=== PATIENT | female | born 1960 | race Caucasian/White ===

== ENCOUNTER 2023-02-02 12:07 | Emergency (ER) | payer SELFPAY ==
[2023-02-02 12:08] VITALS: BP 114/79; PULSE 87; RESP 18; TEMP 36.7; O2SAT 91
--- NOTE | 2023-02-02 12:09 | XRR_ITS ---
PROCEDURE INFORMATION: Exam: XR Chest Exam date and time: 02/02/2023 12:15 PM Age: 62 years old Clinical indication: Other: AMS TECHNIQUE: Imaging protocol: Radiologic exam of the chest. Views: 1 view. COMPARISON: No relevant prior studies available. FINDINGS: Lungs: Mild interstitial prominence, nonspecific, possibly fibrosis. No large areas of dense lobar consolidation seen of the lungs. Pleural spaces: No large or obvious pneumothorax nor pleural effusion seen. Heart/Mediastinum: Heart size appears upper limits of normal. Vasculature: Atherosclerotic disease aorta. Bones/joints: Evidence of right rib fractures, probably subacute to chronic. Curvature, degenerative changes spine. Other findings: Patient appears rotated slightly to the left. XR/XR chest 1V portable [id number] IMPRESSION: Mild interstitial prominence, nonspecific, possibly fibrosis. No large areas of dense lobar consolidation seen of the lungs.
--- NOTE | 2023-02-02 12:09 | CT_ITS ---
WS: [id number] CT HEAD TECHNIQUE: Noncontrast CT of the head obtained from the skullbase to the vertex. CLINICAL INFORMATION: ams COMPARISON: None. DLP: 1083.[address] scans at [facility] use at least one of these dose optimization techniques: automated e xposure control; mA and/or kV adjustment per patient size (includes targeted exams where dose is matc hed to clinical indication); or iterative reconstruction. FINDINGS: No evidence intracranial hemorrhage. Focal low-attenuation change within the RIGHT temporo- occipital junction measuring 2.0 x 1.9 cm. Additional focus low-attenuation involving the RIGHT cereb ellum posteriorly measuring 1.2 x 1.1 cm. Additional tiny low-attenuation focus involving the RIGHT f rontal parietal junction. No significant mass effect or midline shift. Mild small vessel changes. No significant parenchymal volume loss. Paranasal sinuses and mastoid air cells are well aerated. IMPRESSION: 1. A few areas of low-attenuation described above the largest in the RIGHT temporal occipital juncti on measuring 2.0 x 1.9 cm. 2. Differential considerations include metastatic disease versus multiple foci of subacute ischemia . Recommend further evaluation with MRI without and with gadolinium. 3. No significant mass effect or midline shift. Notified Aquiles Gupta DO at 02/02/2023 1:05 PM.
--- NOTE | 2023-02-02 12:10 | ECG_ITS ---
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 Measurements Intervals [place] Rate: 79 P: 57 KS: 140 QRS: 80 QRSD: 83 T: 66 QT: 422 QTc: 486 Interpretive Statements SINUS RHYTHM No previous ECG available for comparison Electronically Signed On 02-02-2023 19:27:08 WATCH PARTS INSPECTOR by Lopez Hubbard M.D. [email or web address]
--- NOTE | 2023-02-02 12:11 | ED_ITS ---
HPI - Altered Mental Status 2 General: Chief Complaint: Fall Stated Complaint: ;fall Time Seen by Provider: 02/02/23 12:09 Source: patient and EMS Mode of arrival: EMS Limitations: altered mental status History of Present Illness: Much of the history is provided by EMS as well as the patient. EMS states that they were called to the scene by the . They arrived to find the patient on the floor but no one could give them a history of how she wound up on the floor. They stated there was no signs of trauma on arrival. They states that she was alert somewhat confused but generally cooperative. was not forthcoming with any additional history. They state that they saw bottles of consumed liquor in the house. They state that the house was normal temperature. There was no odors in the house, space heaters, etc. Patient states that she is unaware of how she went out and floor. She states she did not sleep well last night but cannot tell me why she did not sleep well. She states she does not have any pain other than some mild soreness in her upper back. She denies any recent illness cough fever chest pain shortness of breath dysuria recent travel etc. She states she smokes tobacco but does not consume alcohol very often and has not consumed alcohol recently. She states she has not had thoughts of harming herself and has not consumed any illicit substances. She states she has not eaten today. She takes no daily medications and has never had any surgeries. No family members present initially and EMS unsure if any will be forthcoming. MD complaint: confusion Severity: moderate Context: unknown Associated symptoms: Reports no associated symptoms; Deny depression, homicidal ideation or suicidal ideation Review of Systems 2 Const: Denies: fever(s) or chills Eyes: Denies: change in vision ENMT: Denies: throat pain or odynophagia Card: Denies: chest pain, palpitations, irregular heart rhythm, syncope or pre-syncope Resp: Denies: dyspnea, productive cough or non-productive cough GI: Denies: nausea, vomiting, diarrhea, hematochezia or melena : Denies: flank pain, difficulty voiding, dysuria or urinary frequency Musc: Denies: neck pain, extremity pain or extremity swelling Skin/Breast: Denies: rash, pruritus or erythema Neuro: Denies: headache(s), numbness in extremities, weakness in extremities or seizure-like activity Psych: Denies: depression, suicidal ideation or homicidal ideation Physical Exam 2 Narrative: The patient is alert. She does make eye contact and answers questions readily however she is not able to provide much in the way of a detailed answer. She is able to tell me her birthdate or address. Const: COMMON NORMALS: no acute distress, average body habitus and alert G ENERAL APPEARANCE: cooperative and anxious ORIENTATION/CONSCIOUSNESS: Yes awake, Yes oriented to person and Yes confused HENMT: COMMON NORMALS: normocephalic, atraumatic and Normal nasal mucous membranes and turbinates present; oral mucous membranes not moist HEAD & SCALP: normocephalic and atraumatic FACE & SINUS: normal facial exam and face symmetric NOSE: Normal nasal mucous membranes and turbinates present Eye: COMMON NORMALS: Equal, round and reactive pupils present, EOMs intact bilaterally, conjunctivae normal and no scleral icterus CONJUNCTIVA: Yes conjunctivae normal PUPIL: Yes Equal, round and reactive pupils present Neck/C-Spine: COMMON NORMALS: full ROM, no lymphadenopathy, supple, no meningeal signs, no JVD and Thyroid normal THYROID: Thyroid normal Chest: COMMONS NORMALS: normal inspection of the chest Cardio: COMMON NORMALS: no JVD, regular rate, regular rhythm, No murmurs present (Cardio) and Peripheral pulses 2+ throughout RATE: regular rate R HYTHM: regular rhythm PERIPHERAL PULSES: Peripheral pulses 2+ throughout GI: COMMON NORMALS: Normal to inspection, nondistended, normoactive bowel sounds present, Soft to palpation and non-tender PALPATION: Yes Soft to palpation : COMMON NORMALS: Yes no CVA tenderness BLADDER/KIDNEY EXAM: Yes no CVA tenderness Back/Pelvis: COMMON NORMALS: no CVA tenderness, thoracic and lumbar spine normal to inspection, no thoracic nor lumbar tenderness, thoraco-lumbar ROM normal and straight leg raise negative bilaterally Extremity: COMMON NORMALS: normal to inspection, full ROM, capillary refill normal, no calf tenderness and no pedal edema Neuro: COMMON NORMALS: moves all extremities, no focal motor deficits and no sensory deficits noted SENSORIUM/ORIENTATION: Yes alert and Yes oriented to person MENINGEAL SIGNS: Yes no meningeal signs CRANIAL NERVES: Yes CN normal except as noted Psych: COMMON NORMALS: mental status grossly normal, denies hallucinations, denies homicidal ideation and denies suicidal ideation THOUGHT PROCESS: d isorganized and confused Skin: COMMON NORMALS: no rashes or lesions noted, no wounds, turgor normal and no petechiae GENERAL SKIN EXAM: no rashes or lesions noted and turgor normal Course 2 ED course: The patient's called after her arrival but was very difficult to understand. He stated that she had had any seizure activity confirmed that she took no daily medications and also confirmed that she is not under the care of any physician at this time. Reevaluation(s): Reevaluation #1: Received a phone report from consulting radiologist on noncontrast CT which showed disparate lesions in her brain which it is unclear whether they represent a subacute infarct versus possible metastatic lesions with surrounding edema. MRI was recommended. Should be noted that other than confusion the patient has no focal neurologic findings. Her NIH is 0 at this time. Time: 12:59 Reevaluation #2: Patient was reexamined. Also received a phone call regarding radiographic report on MRI which does not show any acute findings regarding the lesion is and that they likely represent old small infarcts. They do note that there are some changes that may be suggestive of press syndrome. However the patient has no evidence of hypertension at this time. She was reinterviewed and reexamined. She seems to be a little bit more lucid than initial presentation states that she had a rough time last night and this has back pain. She is unaware of any injury. Her clinical examination reveals some tenderness in her thoracic spine to palpation. There is no step-off. She has no neurologic findings on repeat examination with regards of focal weakness, change in sensation etc. Will going proceed with imaging of her thoracic and lumbar spine with noncontrast CT. Time: 15:41 Reevaluation #3: Patient still remains some quite confused albeit some improved from initial presentation. She insist that she must go home and take care of her however she is clearly not at the point where she could not do so. She is not certain as to her telephone number or her address at this point in time. We will attempt to contact her family. She states she has a brother. I did speak with her earlier however he was very difficult to understand on the telephone. We have made multiple attempts to locate a address and phone number for her but are unable to get that accurate information. I do not have neurology support at this time and I feel it is her best interest to be transferred to a facility that has neurology another subspecialty support at this time. Time: 17:41 Consultations: Consultation #1: Discussed with admitting team at [facility] we reviewed all current findings and they agreed to take the patient in transfer. Time: 19:02 Vital Signs: Vital signs: Vital Signs Temperature 98.1 F 02/02/23 12:08 Pulse Rate 87 02/02/23 12:08 Respiratory Rate 18 02/02/23 12:08 Blood Pressure 114/79 02/02/23 12:08 Pulse Oximetry 98 02/02/23 18:11 Oxygen Delivery Me thod Room Air 02/02/23 18:11 MDM - Altered Mental Status Medical Decision Making This patient was transported to our emergency department from her home. History is limited to that which can be obtained from the EMS crew and the limited history obtained from the patient and her via telephone. EMS arrived on scene and found the patient in the floor. There was some question of whether she had fallen but it does not sound like she had been on the floor for very long according to what can be discerned historically. They found the patient to be confused and were limited in her history that they could obtained from her . There was no signs of trauma in the home no evidence of space eaters etc. The patient was transported in stable condition to the emergency department. Upon arrival she was evaluated. Was noted to be confused as to situation limited and insight. Her clinical examination was only notable for mid back tenderness in addition to her confusion. A broad differential was entertained which included a broad approach to her workup. Imaging was obtained which included a noncontrast CT scan which had findings there were nonspecific and further imaging was recommended by radiology. An MRI with contrast and without contrast was obtained which showed no evidence of acute changes other than there was some edema suggestive of possible press syndrome. Urine drug screen was positive for marijuana only. Other tox screens were unremarkable. VBG showed a normal pH and chemistries were only remarkable for borderline potassium of 3.1. Her initial troponin was nonconcerning and as well as initial EKG did not reveal any ischemic changes or arrhythmia. She had a leukocytosis but no clear or obvious source of infection. Chest x-ray was unremarkable a CT of her thoracic and lumbar spine revealed a nondisplaced stable T5 compression fracture. She remained normotensive and otherwise normal vital signs throughout her emergency department stay however she remained confused and exhibiting's signs of nonspecific delirium but possible press syndrome of other etiology other than hypertension. Because of the lack of neurology support at this facility it was felt that she would be better served by a tertiary care facility that had more supportive services. Mandi Manznaares was consulted and agreed to accept the patient in transfer. She remained clinically stable for such transfer Differential Diagnosis Likely delirium Lab Data I reviewed the patient's lab results. 02/02/23 12:40 02/02/23 12:40 Radiology Impressions Chest X-Ray 02/02/23 12:09 IMPRESSION: Mild interstitial prominence, nonspecific, possibly fibrosis. No large areas of dense lobar consolidation seen of the lungs. KUB X-Ray 02/02/23 13:28 IMPRESSION: No acute pathology. No foreign body. Lumbar Spine CT 02/02/23 15:41 IMPRESSION: Superior endplate compression deformity of L5, age indeterminate. No retropulsed fragment. Osteopenia and degenerative change. Thoracic Spine CT 02/02/23 15:41 IMPRESSION: Recent marked T5 compression fracture. No retropulsed fragment. Laboratory Results WBC 20.62 10^3/uL (3.29-11.43) H 02/02/23 12:40 RBC 5.79 10^6/uL (3.85-5.65) H 02/02/23 12:40 Hgb 16.50 g/dL (11.27-16.99) 02/02/23 12:40 Hct 48.2 % (36-47) H 02/02/23 12:40 MCV 83.2 fl (85-98) L 02/02/23 12:40 MCH 28.5 pg (27-33) 02/02/23 12:40 MCHC 34.2 g/dL (30-55) 02/02/23 12:40 RDW 14.0 % (12.1-15.1) 02/02/23 12:40 Plt Count 294 10^3/cmm (157-399) 02/02/23 12:40 MPV 10.8 fL (7.4-10.4) H 02/02/23 12:40 Neut % (Auto) 92.3 % 02/02/23 12:40 Lymph % (Auto) 3.8 % 02/02/23 12:40 [place] % (Auto) 2.8 % 02/02/23 12:40 Eos % (Auto) 0.1 % 02/02/23 12:40 Baso % (Auto) 0.1 % 02/02/23 12:40 Neut # (Auto) 19.04 10^3/uL (1.8-7.7) H 02/02/23 12:40 Lymph # (Auto) 0.8 10^3/uL (0.8-4.8) 02/02/23 12:40 [place] # (Auto) 0.6 10^3/uL (0.2-0.9) 02/02/23 12:40 Eos # (Auto) 0.0 10^3/uL (0.0-0.8) 02/02/23 12:40 Baso # (Auto) 0.0 10^3/uL (0.0-0.1) 02/02/23 12:40 Nucleated RBC % (auto) 0 % 02/02/23 12:40 Nucleated RBCs # 0.0 /100WBC 02/02/23 12:40 Specimen Type Venous 02/02/23 12:40 Sample Site Not specified 02/02/23 12:40 [place]aughn Test N/a 02/02/23 12:40 VBG pH 7.44 (7.32-7.42) H 02/02/23 12:40 VBG pCO2 34.2 mmHg (41-51) L 02/02/23 12:40 VBG pO2 28.8 mmHg (25-40) 02/02/23 12:40 VBG HCO3 23.3 mmol/L (24-28) L 02/02/23 12:40 VBG Base Excess -0.1 mmol/L (-3.0-3.0) 02/02/23 12:40 VBG Hematocrit 53.4 % (37-47) H 02/02/23 12:40 O2 Delivery Device None 02/02/23 12:40 Mixing And Molding Machine Operator ID glc 02/02/23 12:40 Sodium 134 mmol/L (136-145) L 02/02/23 12:40 Potassium 3.1 mmol/L (3.5-5.1) L 02/02/23 12:40 Chloride 93 mmol/L (98-107) L 02/02/23 12:40 Carbon Dioxide 20 mmol/L (22-29) L 02/02/23 12:40 Anion Gap 24.1 (5-19) H 02/02/23 12:40 BUN 30 mg/dL (8-23) H 02/02/23 12:40 Creatinine 0.8 mg/dL (0.5-0.9) 02/02/23 12:40 GFR Calculation 72.2 mL/min (90-130) L 02/02/23 12:40 Glucose 172 mg/dL (65-115) H 02/02/23 12:40 Calculated Osmolality 288 mOsm/kg (285-295) 02/02/23 12:40 Calcium 10.2 mg/dL (8.5-10.5) 02/02/23 12:40 Total Bilirubin 0.9 mg/dL (0.15-1.2) 02/02/23 12:40 AST 32 U/L (0-32) 02/02/23 12:40 ALT 17 U/L (0-33) 02/02/23 12:40 Alkaline Phosphatase 166 U/L (35-105) H 02/02/23 12:40 Troponin T Baseline 9 ng/L (0-10) 02/02/23 12:40 Troponin T 120 Minute 10.54 ng/L (0-10) H 02/02/23 15:44 Delta Troponin T 1.54 ABS# (0-10) 02/02/23 15:44 Total Protein 7.9 g/dL (6.6-8.7) 02/02/23 12:40 Albumin 4.7 g/dL (3.5-5.2) 02/02/23 12:40 Globulin 3.2 g/dL (1.3-4.6) 02/02/23 12:40 Urine Color Yellow (Yellow) 02/02/23 14:00 Urine Appearance Sl hazy (CLEAR) A 02/02/23 14:00 Urine pH 5 (5-7) 02/02/23 14:00 Ur Specific [place] 1.020 (1.005-1.030) 02/02/23 14:00 Urine Protein 3+ (Negative) H 02/02/23 14:00 Urine Glucose (UA) Norm (Normal) 02/02/23 14:00 Urine Ketones 2+ (Negative) H 02/02/23 14:00 Urine Blood 3+ (Negative) H 02/02/23 14:00 Urine Nitrate Negative (Negative) 02/02/23 14:00 Urine Bilirubin Neg (Negative) 02/02/23 14:00 Urine Urobilinogen Norm mg/dL (Negative) 02/02/23 14:00 Ur Leukocyte Esterase Negative (Negative) 02/02/23 14:00 Urine RBC 5-10 /hpf (0-2) H 02/02/23 14:00 Urine WBC 0-4 /hpf (0-5) H 02/02/23 14:00 Ur Squamous Epith Cells 15-25 /hpf (0-5) H 02/02/23 14:00 Amorphous Sediment Not Reportable 02/02/23 14:00 Urine Bacteria 1+ /hpf (NONE) H 02/02/23 14:00 Salicylates 0.4 mg/dL (3-10) L 02/02/23 12:40 Urine Opiates Screen Negative ng/mL (Negative) 02/02/23 14:00 Acetaminophen < 5.0 ug/mL (10-30) L 02/02/23 12:40 Ur Barbiturates Screen Negative ng/mL (Negative) 02/02/23 14:00 Ur Phencyclidine Scrn Negative ng/mL (Negative) 02/02/23 14:00 Ur Amphetamines Screen Negative ng/mL (Negative) 02/02/23 14:00 U Benzodiazepines Scrn Negative ng/mL (Negative) 02/02/23 14:00 Urine Cocaine Screen Negative ng/mL (Negative) 02/02/23 14:00 U Marijuana (THC) Screen Positive ng/mL (Negative) H 02/02/23 14:00 Ethyl Alcohol < 10 mg/dL (0-10) 02/02/23 12:40 All radiology interpretation(s) finalized by discharge EKG Data EKG 1: I personally reviewed and interpreted this EKG as follows: Interpretation: Contemporaneous review of resting EKG reveals a ventricular rate of 79 bpm. Normal OK interval, QRS duration. Normal corrected QT interval. Normal axis. No acute ST-T wave changes noted. No prior tracing available for comparison. No acute changes at this time. Discharge Plan Discharge Patient Disposition: Xfer Short-Term Hosp Clinical Impression: Delirium, Compression fracture of T5 vertebra Condition: Stable Prescriptions: No Action No Known Home Medications Coding Level of Care Code ED Bottom Scrubber for Chg Fwd
[2023-02-02 12:45] LABS: Base Excess VBG -0.1 mmol/L (-3.0-3.0); Blood Gas Operator Identificat glc; Blood Gas Sample Site Not specified; Blood Gas Sample Type Venous; HCO3 VBG 23.3 mmol/L (24-28); PCO2 VBG 34.2 mmHg (41-51); PO2 VBG 28.8 mmHg (25-40); Venous Blood Gas Hematocrit 53.4 % (37-47); pH VBG 7.44 (7.32-7.42)
[2023-02-02 12:47] LABS: Basophils % 0.1 %; Eosinophils % 0.1 %; Hematocrit 48.2 % (36-47); Lymphocytes # 0.8 10^3/uL (0.8-4.8); Lymphocytes % 3.8 %; Mean Corpuscular HGB Conc 34.2 g/dL (30-55); Mean Corpuscular Hemoglobin 28.5 pg (27-33); Mean Corpuscular Volume 83.2 fl (85-98); Mean Platelet Volume 10.8 fL (7.4-10.4); Monocytes # 0.6 10^3/uL (0.2-0.9); Monocytes % 2.8 %; Neutrophils # 19.04 10^3/uL (1.8-7.7); Neutrophils % 92.3 %; Nucleated Red Blood Cells % 0 %; Platelet Count 294 10^3/cmm (157-399); Red Blood Count 5.79 10^6/uL (3.85-5.65); White Blood Count 20.62 10^3/uL (3.29-11.43)
--- NOTE | 2023-02-02 12:55 | MR_ITS ---
WS: [id number] MRI BRAIN WITH AND WITHOUT CONTRAST HISTORY: Abnormal lesions on CT. COMPARISON: CT head 02/02/2023 TECHNIQUE: Multiplanar imaging performed through the brain with MultiHance 10 ml's IV. Diffusion imaging is normal. 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 Patchy bilateral posterior parieto-occipital cortical and subcortical areas of edema are symmetric. T his is most typical for acute hypertensive encephalopathy. There is an additional small remote infarc t in the posterior RIGHT parietal lobe that was described by CT. There are no areas of abnormal enhan cement. Additional mild small vessel ischemic disease throughout the white matter. Clivus and pituitary gland are normal. Postcontrast images are negative for masses or vascular malformations. Dural venous sinuses are normal. Paranasal sinuses: Well aerated with no significant disease. Mastoid air cells: Normal. Calvarium and scalp: Normal. IMPRESSION: 1. No acute diffusion abnormality or enhancing mass. 2. Cortical and subcortical edema in the posterior parieto-occipital lobes as described above. This is most consistent with acute hypertensive encephalopathy (PRES). Notified Aquiles Gupta DO at 02/02/2023 3:30 PM.
[2023-02-02 13:18] LABS: Alanine Aminotransferase 17 U/L (0-33); Albumin Level 4.7 g/dL (3.5-5.2); Alkaline Phosphatase 166 U/L (35-105); Anion Gap 24.1 (5-19); Aspartate Amino Transferase 32 U/L (0-32); Blood Urea Nitrogen 30 mg/dL (8-23); Calcium 10.2 mg/dL (8.5-10.5); Carbon Dioxide 20 mmol/L (22-29); Chloride 93 mmol/L (98-107); Globulin 3.2 g/dL (1.3-4.6); Glomerular Filtration Rate 72.2 mL/min (90-130); Glucose 172 mg/dL (65-115); Osmolality Calculated 288 mOsm/kg (285-295); Potassium 3.1 mmol/L (3.5-5.1); Salicylate 0.4 mg/dL (3-10); Sodium 134 mmol/L (136-145); Total Bilirubin 0.9 mg/dL (0.15-1.2); Total Protein 7.9 g/dL (6.6-8.7)
[2023-02-02 13:22] LABS: Troponin(5th) Baseline 9 ng/L (0-10)
[2023-02-02 13:27] LABS: Acetaminophen < 5.0 ug/mL (10-30); Alcohol Level < 10 mg/dL (0-10)
--- NOTE | 2023-02-02 13:28 | XRR_ITS ---
PROCEDURE INFORMATION: Exam: XR Abdomen, MR Screening Exam date and time: 02/02/2023 1:50 PM Age: 62 years old Clinical indication: Screening exam; Other: Pre mri; Additional info: Evaluate for stimulator, etc pre mri TECHNIQUE: Imaging protocol: abdomen and pelvis. Exam was performed for MR screening. Views: 1 view. COMPARISON: CR XR chest 1V portable [id number] 02/02/2023 12:15 PM FINDINGS: Gastrointestinal tract: Generalized paucity of bowel gas. Pelvic calcifications are nonspecific but may be related to vascular etiology and/or fibroid. No foreign body. Bones/joints: Mild degenerative change of the spine. Radiopaque device or foreign body: None. No evidence of device or foreign body. No visible contraindication to MRI on this exam. XR/XR KUB portable [id number] IMPRESSION: No acute pathology. No foreign body.
[2023-02-02] MEDS: acetaminophen 325 mg Tablet 650 MG PO (13:53)
[2023-02-02] MEDS: sodium chloride 0.9% 1,000 ML 999 ML IV (13:57)
[2023-02-02 15:01] LABS: Amphetamines Screen Urine Negative (Negative); Barbiturates Screen Urine Negative (Negative); Benzodiazepines Screen Urine Negative (Negative); Cocaine Screen Urine Negative (Negative); Opiate Screen Urine Negative (Negative); PCP Screen Urine Negative (Negative); THC Screen Urine Positive (Negative)
[2023-02-02] MEDS: gadobenate dimeglumine 20 mL vial IV (15:06)
[2023-02-02 15:08] LABS: Add Urine Culture? No; Add Urine Microscopic? YES; Bacteria Urine 1+ /hpf; Bilirubin Urine Neg (Negative); Blood Urine 3+ (Negative); Glucose Urine UA Norm (Normal); Ketones Urine 2+ (Negative); Leukocyte Esterase Urine Negative (Negative); Nitrate Urine Negative (Negative); Protein Urine 3+ (Negative); Squamous Epithelial Cell Urine 15-25 /hpf (0-5); Urine Appearance SL Hazy (CLEAR); Urine Color Yellow (Yellow); Urobilinogen Urine Norm (Negative); WBC Urine 0-4 /hpf (0-5); pH Urine 5 (5-7)
--- NOTE | 2023-02-02 15:41 | CTR_ITS ---
PROCEDURE INFORMATION: Exam: CT Lumbar Spine Without Contrast Exam date and time: 02/02/2023 4:39 PM Age: 62 years old Clinical indication: Low back pain; Additional info: Spine pain TECHNIQUE: Imaging protocol: Computed tomography of the lumbar spine without contrast. Radiation optimization: All CT scans at this facility use at least one of these dose optimization techniques: automated exposure control; mA and/or kV adjustment per patient size (includes targeted exams where dose is matched to clinical indication); or iterative reconstruction. REPORTING DATA: Count of CT and Cardiac NM exams in prior 12 months: This patient has received 0 known CTs and 0 known cardiac nuclear medicine studies in the 12 months prior to the current study. COMPARISON: CT thoracic spin wo con* [id number] 02/02/2023 4:39 PM RADIATION DOSE METRICS: Total DLP (mGy-cm): 459.8 FINDINGS: Bones/joints: Mild levocurvature. Superior endplate compression deformity of L5 without generalized loss of height of the vertebral body. No retropulsed fragment. No discrete fracture line visualized. Osteopenia. Mild degenerative disc disease greatest at the L2-3 level. Degenerative changes noted at the facet joints, greatest in the lower lumbar spine. Kidneys and ureters: Residual contrast material the renal collecting systems from prior MRI contrast injection. Mild degenerative change of sacroiliac joints. Soft tissues: Unremarkable. CT/CT lumbar spine wo con* [id number] IMPRESSION: Superior endplate compression deformity of L5, age indeterminate. No retropulsed fragment. Osteopenia and degenerative change.
--- NOTE | 2023-02-02 15:41 | CTR_ITS ---
PROCEDURE INFORMATION: Exam: CT Thoracic Spine Without Contrast Exam date and time: 02/02/2023 4:39 PM Age: 62 years old Clinical indication: Pain in thoracic spine; Additional info: Midline pain TECHNIQUE: Imaging protocol: Computed tomography of the thoracic spine without contrast. Radiation optimization: All CT scans at this facility use at least one of these dose optimization techniques: automated exposure control; mA and/or kV adjustment per patient size (includes targeted exams where dose is matched to clinical indication); or iterative reconstruction. REPORTING DATA: Count of CT and Cardiac NM exams in prior 12 months: This patient has received 0 known CTs and 0 known cardiac nuclear medicine studies in the 12 months prior to the current study. COMPARISON: CT lumbar spine wo con* [id number] 02/02/2023 4:39 PM RADIATION DOSE METRICS: Total DLP (mGy-cm): 475.2 FINDINGS: Bones/joints: Osteopenia. Minimal dextrocurvature. Marked T5 compression fracture without retropulsed fragment. No underlying pathologic lesion visualized. Discrete fracture line noted with mild adjacent soft tissue swelling consistent with recent fracture. Mild kyphotic angulation at the fracture site. Mild degenerative disc disease throughout the thoracic spine. Marked degenerative disease of visualized lower cervical spine. Fatty change of the liver. Adenomatous change of the left adrenal gland. Severe pulmonary emphysema. Bronchial wall thickening. Pleural thickening.Coronary artery calcifications. Soft tissues: See Bones/joints finding. CT/CT thoracic spin wo con* [id number] IMPRESSION: Recent marked T5 compression fracture. No retropulsed fragment.
[2023-02-02 16:08] LABS: Troponin 5 2HR 10.54 ng/L (0-10); Troponin 5 2HR Delta 1.54 ABS# (0-10)
[2023-02-02 18:11] VITALS: O2SAT 98
[2023-02-02 18:43] LABS: Troponin 5 6HR 11.08 ng/L (0-10); Troponin 5 6HR Delta 2.08 ng/L (0-12)
[2023-02-02] MEDS: lactated ringers 1,000 ML 100 ML IV (19:13)
[2023-02-02 23:19] VITALS: PULSE 66; O2SAT 96
== END 2023-02-02 23:24 | disposition short-term general hospital (02) ==
PROVIDERS: Emergency Provider Emergency Medicine
DX: R41.0 Disorientation, unspecified (principal); S22.050A Wedge compression fracture of T5-T6 vertebra, initial encounter for closed fracture; X58.XXXA Exposure to other specified factors, initial encounter
CPT/HCPCS: 36415; 70450; 70553; 71045; 72128; 72131; 74018; 80053; 80306; 80307; 81001; 82803; 84484; 85025; 93005; 96360; 96361; 99285; A9577; J7030; J7120

== ENCOUNTER → 2023-02-27 14:15 | Outpatient (BNVA) | payer BC, SELFPAY | PROVIDERS: PCP Nurse Practitioner Family; Visit Provider Nurse Practitioner Family | DX: R53.83 Other fatigue (principal); I10 Essential (primary) hypertension | CPT/HCPCS: 80053; 85025 ==

== ENCOUNTER → 2023-03-07 11:56 | Outpatient (BNVA) | payer BC, SELFPAY | PROVIDERS: PCP Nurse Practitioner Family; Visit Provider Nurse Practitioner Family | DX: N39.0 Urinary tract infection, site not specified (principal) | CPT/HCPCS: 87086 ==

== ENCOUNTER 2023-05-24 10:02 | Outpatient (CLI) | payer BC, SELFPAY ==
--- NOTE | 2023-05-24 10:15 | MR_ITS ---
WS: [id number] MRI THORACIC SPINE WITHOUT CONTRAST TECHNIQUE: Sagittal T1, T2 and STIR imaging. Axial T2 imaging. Noncontrast imaging obtained. CLINICAL INFORMATION: S22.050A - Wedge compression fracture of T5-T6 vertebra, ... COMPARISON: None. FINDINGS: Moderate thoracic kyphosis. Anterior wedging with compression fracture at the T5 level with focal kyp hosis at this level. Compression has progressed slightly compared to the prior CT 02/02/2023 with los s of approximately 75% vertebral body height anteriorly. Mild retropulsion with slight contact of the thoracic cord but no significant central canal stenosis. Cord signal remains normal. Diffuse scleros is involving T5 vertebral body with replacement of the normal bone marrow signal. Pathologic compress ion not excluded. This can be further evaluated with gadolinium and/or bone scan. Mild compression of the superior endplates at T4 is new from previous with minimal loss of endplate h eight. Mild anterior wedging at this level. Associated edema in the superior endplate consistent with recent compression. Edema in the posterior elements at the RIGHT C4-T6 levels and LEFT T5 and T6. Ed todd could be inflammatory or due to instability. Cord signal is normal. Shallow disc protrusions in the mid and lower thoracic spine without significa nt central canal stenosis. Moderate facet arthropathy. Central disc protrusion at T2-3 with slight co ntact of the thoracic cord. No significant central canal stenosis. Trace edema in the superior endplate at T6 and inferior endplate at T3 may be degenerative but nonspe cific. Normal caliber thoracic aorta. IMPRESSION: 1. Anterior wedging with compression of the T5 level with diffuse replacement the normal bone marrow signal. Progression is progressed slightly compared to 02/02/2023. Consider pathologic compression. Recommend correlation with clinical history. Recommend further evaluation with MRI thoracic spine preet olinium and bone scan to assess for additional lesions 2. New mild compression involving the superior endplate at T4 with minimal loss of vertebral body he ight and edema compatible with a recent compression. 3. Diffuse edema in the lamina and pedicles at RIGHT T4-T6 and LEFT T5 and T6. This may be inflammat ory or due to instability. 4. Central disc protrusion at T2-3 with slight contact of the thoracic cord. 5. Mild central canal stenosis in the cervical spine with disc osteophyte protrusions on the ice cream vendor i maging at C5-C6 and C6-C7.
== END 2023-05-24 10:03 | disposition home or self-care (01) ==
LOC: RAD 10:02
PROVIDERS: PCP Nurse Practitioner Family; Visit Provider Nurse Practitioner Family
DX: S22.050A Wedge compression fracture of T5-T6 vertebra, initial encounter for closed fracture (principal); M48.02 Spinal stenosis, cervical region; X58.XXXA Exposure to other specified factors, initial encounter
CPT/HCPCS: 72146

== ENCOUNTER → 2023-06-01 10:06 | Outpatient (BNVA) | payer BC, SELFPAY | PROVIDERS: PCP Nurse Practitioner Family; Visit Provider Nurse Practitioner Family | DX: N30.00 Acute cystitis without hematuria (principal) | CPT/HCPCS: 81000 ==

== ENCOUNTER 2023-06-08 07:41 | Outpatient (CLI) | payer MEDICARE, SELFPAY ==
--- NOTE | 2023-06-08 08:15 | US_ITS ---
WS: [email or web address] RIGHT UPPER QUADRANT ULTRASOUND HISTORY: R10.811 - Right upper quadrant abdominal tenderness COMPARISON: None available. Liver: 13.0 cm in length. Normal size liver. Surface of the liver is very slightly undulating. Correl ate for early changes of cirrhosis. No mass or bile duct dilatation. Portal Vein: Normal hepatopetal flow with monophasic waveform. Gallbladder: Normally distended gallbladder with no stones or wall thickening. CBD: 0.5 cm Pancreas: Not visualized. Right kidney: 10.2 cm in length. Normal size and echogenicity. No hydronephrosis or mass. Aorta and IVC: Unremarkable abdominal aorta and IVC. No ascites. IMPRESSION: 1. Normal gallbladder. 2. Very mild irregularity of the liver surface. This can be seen with early changes of cirrhosis. No hepatic mass. 3. No bile duct dilatation.
== END 2023-06-08 07:42 | disposition home or self-care (01) ==
LOC: RAD 07:43
PROVIDERS: PCP Nurse Practitioner Family; Visit Provider Nurse Practitioner Family
DX: R10.811 Right upper quadrant abdominal tenderness (principal)
CPT/HCPCS: 76705

== ENCOUNTER 2023-06-12 08:37 | Outpatient (CLI) | payer BC, SELFPAY ==
--- NOTE | 2023-06-12 08:45 | NM_ITS ---
WS: [id number] NUCLEAR MEDICINE WHOLE BODY BONE SCAN HISTORY: M89.9 - Disorder of bone, unspecified COMPARISON: MRI thoracic spine 05/24/2023 TECHNIQUE: The patient was injected with 24.3 mCi of Technetium 99m HDP and serial whole-body scintig apoorva have been performed with anterior and posterior images. Markedly increased activity noted in the T5 vertebral body. Concave fracture was noted on recent MRI and CT. Lesser amount of activity noted within the RIGHT T4 and T3 vertebral bodies. There is an add itional focal area of increased intense uptake in the LEFT lower cervical spine, probably C7. Focal activity noted in the LEFT L5 pedicle. The long bones are negative. No sacral abnormality. No r ib abnormality. Additional focal increased uptake in the RIGHT humeral head. Normal soft tissue uptake. Kidneys are both identified. NM/NM bone scan whole body* [id number] IMPRESSION: 1. Multifocal areas of abnormal uptake within the spine. Due to the intense up take and fractures most specifically at T4 and T5 consideration for neoplastic process should be given. Differential includes metastatic bone disease and oste openia with pathological fractures and facet arthritis. 2. Additional increased uptake in the RIGHT humeral head. Metastatic site is n ot excluded. Recommend additional evaluation. Evaluation for an occult neoplasm should be performed. With history of smoking suggest additional imaging of the chest, abdomen and pelvis with IV and oral contrast. PET/CT may be of benefit also.
== END 2023-06-12 08:38 | disposition home or self-care (01) ==
LOC: RAD 08:37
PROVIDERS: PCP Nurse Practitioner Family; Visit Provider Nurse Practitioner Family
DX: M89.9 Disorder of bone, unspecified (principal)
CPT/HCPCS: 78306; A9561

== ENCOUNTER 2023-07-03 11:03 | Outpatient (CLI) | payer BC, SELFPAY ==
--- NOTE | 2023-07-03 12:00 | PETR_ITS ---
PROCEDURE INFORMATION: Exam: PET/CT Skull Base to Mid-thigh Exam date and time: 07/03/2023 12:07 PM Age: 63 years old Clinical indication: Abnormal findings; Anterior wedging with compression of the t5 level with diffuse replacement the normal bone marrow signal. Progression is progressed slightly compared to 02/02/2023. Consider pathologic compression. Recommend correlation with clinical history. Recommend further evaluation with mri thoracic spine gadolinium and bone scan to assess for additional lesions 2. New mild compression involving the superior endplate at t4 with minimal loss of vertebral body height and edema compatible with a recent compression. 3. Diffuse edema in the lamina and pedicles at right t4-t6 and left t5 and t6. This May be inflammatory or due to instability. 4. Central disc protrusion at t2-3 with slight contact of the thoracic cord. 5. Mild central canal stenosis in the cervical spine with disc osteophyte protrusions on the chemist organic imaging at c5-c6 and c6-c7; Additional info: R93.7 - abnormal findings on diagnostic imaging of other . . . LABS AND CLINICAL REPORTS: Glucose: 77 mg/dl Treatment strategy for malignancy (PET staging): Initial Staging (PI) TECHNIQUE: Imaging protocol: Following at least four-hour fasting and following the injection of radiopharmaceutical, low dose CT images were obtained. Then, PET images were obtained. Attenuation corrected images were constructed using the CT scan. Fused images of PET and CT were reviewed. The standardized uptake values (SUV) reported below are maximum values within a region of interest, expressed in gm/ml. Exam includes orbital meatal line to mid-thigh. Radiopharmaceutical: 13.2 mCi F-18 FDG (Fluorodeoxyglucose), IV. Time of imaging post radiopharmaceutical administration: 1 hour Injection site: Left antecubital COMPARISON: NM bone scan whole body* [id number] 06/12/2023 8:45 AM, MRI thoracic spine 05/24/2023, CT lumbar spine and CT thoracic spine 02/02/2023 FINDINGS: Brain: No abnormal uptake. Pharynx: No abnormal uptake. Larynx: There is physiologic appearing uptake within the larynx in the region of the vocal cords. Lungs, pleura and trachea: No abnormal uptake. Mild centrilobular emphysematous changes are present mild peripheral bullous versus paraseptal emphysematous changes are also noted bilaterally.Mild dependent streaky density in the lungs is consistent with atelectasis. Heart: Normal physiologic uptake. Mediastinal space: No abnormal uptake. Liver: No abnormal uptake. Gallbladder and bile ducts: No abnormal uptake. Pancreas: No abnormal uptake. Spleen: No abnormal uptake. Adrenal glands: No abnormal uptake. Kidneys and ureters: Normal physiologic uptake. Stomach and bowel: Uptake in the region of the rectum is noted, SUV max 6.5 on series 12, image 206. Assessment of the rectal wall is limited by incomplete distension on the CT images. There is physiologic appearing uptake in the region of the ileocecal valve. There are scattered colonic diverticula. Reproductive: Non radiotracer avid coarse calcifications likely within leiomyomas are noted within the uterus. Vasculature: No abnormal uptake. Diffuse atherosclerotic changes are noted. Lymph nodes: No abnormal uptake. No lymphadenopathy in the head, neck, chest, abdomen, pelvis, and extremities. Small benign-appearing calcified mediastinal and right hilar lymph nodes are present. Skeleton: Degenerative changes in the spine are present. A fracture of the T5 vertebral body appears similar and severe with mild uptake within a small portion of the fracture site posteriorly on the left, SUV max 2.9. Similar mild kyphosis centered at this level. Similar [id number] compression deformity of the superior endplate of T4 without elevated uptake. Mild uptake in the anterior superior endplate of the adjacent T6 vertebral body is noted without evidence of a fracture in this region, SUV max 2.6. An old appearing mild compression fracture or Schmorl's node of the superior endplate of L5 is noted. Mild degenerative appearing subcortical cystic changes are noted in the right humeral greater tuberosity which appear degenerative, without elevated uptake. Soft tissues: No abnormal uptake in the visualized head, neck, chest, abdomen, pelvis, and extremities. METRICS: Mediastinal blood pool: SUV max 1.9 PET/[facility] INITIAL [id number] IMPRESSION: 1. Elevated uptake within a small portion of a known severe compression fracture of the T5 vertebral body is noted, which in conjunction with prior imaging features favors a benign posttraumatic insufficiency fracture. A malignant pathologic fracture is less likely. 2. Old appearing mild compression fracture of the T4 vertebral body. 3. Mild uptake in the anterior superior endplate of T6 without a corresponding lesion on the CT images, possibly degenerative or related to contusion. 4. Focal uptake in the region of the rectum is noted. While this may be physiologic or inflammatory in nature, malignant etiology cannot be entirely excluded from this examination. 5. Colonic diverticulosis. 6. Pulmonary emphysematous changes. 7. Additional nonurgent findings as detailed above.
== END 2023-07-03 11:04 | disposition home or self-care (01) ==
PROVIDERS: PCP Nurse Practitioner Family; Visit Provider Nurse Practitioner Family
DX: R93.7 Abnormal findings on diagnostic imaging of other parts of musculoskeletal system (principal); S22.050D Wedge compression fracture of T5-T6 vertebra, subsequent encounter for fracture with routine healing; S22.049D Unspecified fracture of fourth thoracic vertebra, subsequent encounter for fracture with routine healing; K57.90 Diverticulosis of intestine, part unspecified, without perforation or abscess without bleeding; J43.8 Other emphysema; R93.3 Abnormal findings on diagnostic imaging of other parts of digestive tract
CPT/HCPCS: 78815; A9552

== ENCOUNTER → 2023-07-12 10:14 | Outpatient (BNVA) | payer BC, SELFPAY | PROVIDERS: PCP Nurse Practitioner Family; Referring Provider Nurse Practitioner Family; Visit Provider Orthopaedic Surgery | DX: Z01.812 Encounter for preprocedural laboratory examination (principal); S22.050A Wedge compression fracture of T5-T6 vertebra, initial encounter for closed fracture; W07.XXXA Fall from chair, initial encounter | CPT/HCPCS: 36415; 72072; 80053; 81001; 85025 ==

== ENCOUNTER 2023-07-24 12:51 | Oncology outpatient (recurring) (ONCR) | payer BC, SELFPAY ==
[2023-07-24 14:26] LABS: Basophils % 0.4 %; Eosinophils # 0.2 10^3/uL (0.0-0.8); Eosinophils % 1.9 %; Hematocrit 36.2 % (36-47); Lymphocytes # 2.8 10^3/uL (0.8-4.8); Lymphocytes % 27.6 %; Mean Corpuscular HGB Conc 34.3 g/dL (30-55); Mean Corpuscular Hemoglobin 29.3 pg (27-33); Mean Corpuscular Volume 85.6 fl (85-98); Mean Platelet Volume 10.5 fL (7.4-10.4); Monocytes # 0.5 10^3/uL (0.2-0.9); Monocytes % 5.3 %; Neutrophils # 6.63 10^3/uL (1.8-7.7); Neutrophils % 64.6 %; Nucleated Red Blood Cells % 0 %; Platelet Count 298 10^3/cmm (157-399); Red Blood Count 4.23 10^6/uL (3.85-5.65); Red Cell Distribution Width 14.1 % (12.1-15.1); White Blood Count 10.26 10^3/uL (3.29-11.43)
[2023-07-24 14:35] LABS: Erythrocyte Sedimentation Rate 48 mm/hr (0-15); LAB Peripheral Smear Sent for Review
[2023-07-24 14:41] LABS: Alanine Aminotransferase 10 U/L (0-33); Albumin Level 3.4 g/dL (3.5-5.2); Alkaline Phosphatase 122 U/L (35-105); Anion Gap 13.2 (5-19); Aspartate Amino Transferase 10 U/L (0-32); Blood Urea Nitrogen 8 mg/dL (8-23); C Reactive Protein 40.7 mg/L (0.0-4.9); Calcium 9.2 mg/dL (8.5-10.5); Carbon Dioxide 28 mmol/L (22-29); Chloride 101 mmol/L (98-107); Creatinine Clr Calc Pharmacy 58.8727; Globulin 3.2 g/dL (1.3-4.6); Glucose 99 mg/dL (65-115); Lactate Dehydrogenase 189 U/L (135-214); Osmolality Calculated 286 mOsm/kg (285-295); Potassium 3.2 mmol/L (3.5-5.1); Sodium 139 mmol/L (136-145); Total Bilirubin 0.2 mg/dL (0.15-1.2); Total Protein 6.6 g/dL (6.6-8.7)
== END 2023-08-12 23:59 | disposition home or self-care (01) ==
PROVIDERS: PCP Nurse Practitioner Family; Visit Provider Internal Medicine Medical Oncology
DX: D72.829 Elevated white blood cell count, unspecified (principal)
CPT/HCPCS: 36415; 80053; 83615; 85025; 85651; 86140

== ENCOUNTER → 2023-08-07 08:40 | Outpatient (BNVA) | payer BC, SELFPAY | PROVIDERS: PCP Nurse Practitioner Family; Visit Provider Family Medicine | DX: Z01.818 Encounter for other preprocedural examination (principal) | CPT/HCPCS: 80048; 93005 ==

== ENCOUNTER → 2023-08-08 11:34 | Outpatient (BNVA) | payer BC, SELFPAY | PROVIDERS: PCP Nurse Practitioner Family; Visit Provider Family Medicine | DX: N30.00 Acute cystitis without hematuria (principal) | CPT/HCPCS: 87086 ==

== ENCOUNTER 2023-08-14 10:22 | Oncology outpatient (recurring) (ONCR) | payer MEDICARE, SELFPAY ==
[2023-08-14 10:52] LABS: Basophils # 0.1 10^3/uL (0.0-0.1); Basophils % 0.4 %; Eosinophils # 0.1 10^3/uL (0.0-0.8); Eosinophils % 0.8 %; Hematocrit 35.9 % (36-47); Lymphocytes # 3.4 10^3/uL (0.8-4.8); Mean Corpuscular HGB Conc 32.6 g/dL (30-55); Mean Corpuscular Volume 89.1 fl (85-98); Mean Platelet Volume 11.2 fL (7.4-10.4); Monocytes # 0.7 10^3/uL (0.2-0.9); Monocytes % 5.6 %; Neutrophils # 8.66 10^3/uL (1.8-7.7); Neutrophils % 66.8 %; Nucleated Red Blood Cells % 0 %; Platelet Count 293 10^3/cmm (157-399); Red Blood Count 4.03 10^6/uL (3.85-5.65); Red Cell Distribution Width 14.2 % (12.1-15.1); White Blood Count 12.96 10^3/uL (3.29-11.43)
[2023-08-14 10:56] LABS: Erythrocyte Sedimentation Rate 23 mm/hr (0-15)
[2023-08-14 11:19] LABS: Alanine Aminotransferase 10 U/L (0-33); Albumin Level 3.5 g/dL (3.5-5.2); Alkaline Phosphatase 110 U/L (35-105); Anion Gap 12.9 (5-19); Aspartate Amino Transferase 13 U/L (0-32); Blood Urea Nitrogen 7 mg/dL (8-23); C Reactive Protein 38.8 mg/L (0.0-4.9); Carbon Dioxide 29 mmol/L (22-29); Chloride 100 mmol/L (98-107); Glomerular Filtration Rate 100.3 mL/min (90-130); Glucose 110 mg/dL (65-115); Osmolality Calculated 285 mOsm/kg (285-295); Potassium 3.9 mmol/L (3.5-5.1); Sodium 138 mmol/L (136-145); Total Bilirubin 0.4 mg/dL (0.15-1.2); Total Protein 6.5 g/dL (6.6-8.7)
== END 2023-09-12 23:59 | disposition home or self-care (01) ==
PROVIDERS: PCP Nurse Practitioner Family; Visit Provider Internal Medicine Medical Oncology
DX: D72.829 Elevated white blood cell count, unspecified (principal); R11.10 Vomiting, unspecified; R10.9 Unspecified abdominal pain; M48.50XA Collapsed vertebra, not elsewhere classified, site unspecified, initial encounter for fracture
CPT/HCPCS: 36415; 80053; 85025; 85651; 86140

== ENCOUNTER → 2023-08-22 09:14 | Outpatient (BNVA) | payer BC, SELFPAY | PROVIDERS: PCP Nurse Practitioner Family; Visit Provider Nurse Practitioner Family | DX: N30.00 Acute cystitis without hematuria (principal) | CPT/HCPCS: 87086 ==

== ENCOUNTER 2023-09-28 13:30 | Oncology outpatient (recurring) (ONCR) | payer MEDICARE, SELFPAY ==
--- NOTE | 2023-09-27 08:00 | NM_ITS ---
WS: [id number] NUCLEAR MEDICINE HIDA SCAN WITH GALLBLADDER EJECTION FRACTION HISTORY: NAUSEA AND VOMITING COMPARISON: RIGHT upper quadrant ultrasound 06/08/2023 TECHNIQUE: The patient was intravenously injected with 7.6 mCi of TC99m Mebrofenin. Immediate imaging over the right upper quadrant was followed by 5 minute image and additional images for a total of 60 minutes. Normal uptake of radiotracer throughout the liver. Activity identified in the gallbladder at 15 minutes and only minimally distended at 60 minutes. Gall bladder appears small. Activity in the proximal small bowel was seen by 30 minutes. Good washout of the radiotracer from the liver by 60 minutes. The patient then drank 8 ounces of Ensure Plus. Ejection fraction at 60 minutes was 26%. Normal GB ej ection fraction is 35-75%. Post fatty meal symptoms: None. NM/NM hepatobiliary w phar* [id number] IMPRESSION: 1. No common bile duct or cystic duct obstruction. 2. Abnormal gallbladder ejection fraction 26%. Consider gallbladder dyskinesia . 3. Gallbladder with only mild distention during the examination. Consider nitric acid plant operator vonnie cholecystitis.
--- NOTE | 2023-09-28 13:30 | XR_ITS ---
WS: [email or web address] DEXA (DUAL ENERGY X-RAY ABSORPTIOMETRY) Bone mineral density was performed using a [employer] machine. HISTORY: recurrent vomiting, abdominal pain COMPARISON: None available. Lumbar spine BMD (L1-L4): 0.829 g/cm2 T score: -2.9 Z score: -0.9 Total hip BMD: Left: 0.726 g/cm2. T score: -2.2 Z score: -0.7 Right: 0.688 g/cm2. T score: -2.5 Z score: -1.0 10 year probability of a major osteoporotic fracture is 14.3%. XR/XR DEXA axial skeleton* [id number] IMPRESSION: OSTEOPOROSIS based upon the WHO classification for females.
== END 2023-10-13 23:59 | disposition home or self-care (01) ==
LOC: ONCMED 10-04 16:30
PROVIDERS: PCP Nurse Practitioner Family; Visit Provider Internal Medicine Medical Oncology
DX: Z53.9 Procedure and treatment not carried out, unspecified reason (principal); M81.0 Age-related osteoporosis without current pathological fracture
CPT/HCPCS: 77080; 78227; A9537

== ENCOUNTER → 2023-10-02 09:15 | Outpatient (BNVA) | payer MEDICARE, SELFPAY | PROVIDERS: PCP Nurse Practitioner Family; Visit Provider Orthopaedic Surgery | DX: S22.050A Wedge compression fracture of T5-T6 vertebra, initial encounter for closed fracture (principal); X58.XXXA Exposure to other specified factors, initial encounter; M54.9 Dorsalgia, unspecified | CPT/HCPCS: 72072; 99213 ==

== ENCOUNTER → 2023-10-05 08:00 | Outpatient (BNVA) | payer MEDICARE, SELFPAY | PROVIDERS: PCP Nurse Practitioner Family; Referring Provider Internal Medicine Medical Oncology; Visit Provider Student in an Organized Health Care Education/Training Program | DX: R11.2 Nausea with vomiting, unspecified (principal) | CPT/HCPCS: 99204 ==

== ENCOUNTER 2023-10-22 05:43 | Day surgery (SDC) | payer MEDICARE, SELFPAY ==
[2023-10-22 06:07] VITALS: BP 150/74; PULSE 70; RESP 18; TEMP 36.6; O2SAT 99; BMI 22.4
[2023-10-22] MEDS: sodium chloride 0.9% 1,000 ML 30 ML IV (06:12)
--- NOTE | 2023-10-22 06:41 | ANES.PREANE2 ---
Pre-Anesthetic Assessment Height/Weight: Height 1.52 m Weight 52.163 kg Temp Pulse Resp BP Pulse Ox O2 Del Method 97.8 F 70 18 150/74 99 Room Air 10/22/23 06:07 10/22/23 06:07 10/22/23 06:07 10/22/23 06:07 10/22/23 06:07 10/22/23 06:07 Preop Diagnosis: Nausea Vomiting Operation Date: 10/22/23 07:00 Proposed Procedures p EGD 50686,R11.2(Not Applicable) - Theo Ovalle MD Familial anesthetic complications: none Was Beta Ellen taken within 24 hours: N/A Was Clonidine taken within 24 hours: N/A Last intake: Intake Last Liquid Date 10/21/23 Last Liquid Time 23:30 Last Solid Date 10/21/23 Last Solid Time 18:00 Social Tobacco and No tobacco Tobacco this am, vines cannabis Exam alert, oriented x 3, clear to auscultation bilaterally and regular rate & rhythm Airway Submandibular: within normal limits Cervical ROM: within normal limits Mallampati: Class II Comments: Comments: few missing bilateral molar upper and lower Pulmonary Chronic Obstructive Pulmonary Disease (likely little bit uses husbands inhalers occasionally) CV/HEM None reported None reported Hepatic None reported GI frequent N/V 1 week per month. Gallbladder non-functional likely will need removed. Metabolic None reported Musc/skel Lower Back Pain (compression fracture 02/[address] Yi. ) Neuropsych Anxiety and Depression Anesthetic Plan ASA status: 2 Anesthesia: MAC Medications/Allergies Home Medications Medication Instructions Recorded Confirmed Last Taken Type Bone growth stimulator #1 ea 08/13/23 10/05/23 Unknown Rx coenzyme Q10 100 mg capsule 100 mg PO DAILY 10/18/23 10/18/23 10/20/23 History (CoQ-10) fluoxetine 20 mg capsule 20 mg PO DAILY 10/18/23 10/18/23 10/21/23 History ibuprofen 200 mg tablet 600 mg PO Q6H PRN Pain 10/18/23 10/18/23 10/21/23 History Allergies Allergy/AdvReac Type Severity Reaction Status Date / Time Opioids - Morphine Analogues Allergy Severe vomiting Verified 10/05/23 08:02 Current Medications Generic Name Dose Route Start Last Admin Trade Name Freq PRN Reason Stop Dose Admin Sodium Chloride 1,000 mls @ 30 mls/hr 10/22/23 06:00 10/22/23 06:12 Sodium Chloride 0.9% IV 10/23/23 05:59 30 mls/hr .Q24H NORRIS Administration PFSH Anesthesia Medical History Recurrent vomiting Depression Anxiety Thoracic compression fracture History of uterine fibroid Surgical History (Updated 10/05/23 @ 08:07 by Nova Deluca, CT) Hx of hand surgery right Family History Father Colon cancer Mother Pulmonary fibrosis Social History (Updated 10/05/23 @ 08:08 by Nova Deluca, CT) Smoking and tobacco/nicotine status: current every day tobacco/nicotine user cigarettes Packs smoked per day: 1 Years cigarettes smoked: 45 [ Other cigarette details: trying to quit] Alcohol intake: current Alcohol intake frequency: holidays/special occasions only Substance/Drug Use: current Data Anesthesia Cardiac Studies: No Data to Display
--- NOTE | 2023-10-22 06:56 | W.PM.OPSFHP ---
Same Day Surgery H&P Indication for Procedure/HPI DATE OF PROCEDURE: October 22, 2023 CHIEF COMPLAINT/INDICATIONFOR SURGICAL PROCEDURE: Dyspepsia PREOP DIAGNOSIS: Nausea Vomiting PLANNED PROCEDURE: Operation Date: 10/22/23 07:00 Proposed Procedures p EGD 45109,R11.2(Not Applicable) - Theo Ovalle MD Medications/Allergies* Home Medications Medication Instructions Recorded Confirmed Type coenzyme Q10 100 mg capsule 100 mg PO DAILY 10/18/23 10/18/23 History (CoQ-10) fluoxetine 20 mg capsule 20 mg PO DAILY 10/18/23 10/18/23 History ibuprofen 200 mg tablet 600 mg PO Q6H PRN Pain 10/18/23 10/18/23 History Allergies/Adverse Reactions Allergy/AdvReac Type Severity Reaction Status Date / Time Opioids - Morphine Analogues Allergy Severe vomiting Verified 10/05/23 08:02 Current Medications: Generic Name Dose Route Start Last Admin Trade Name Freq PRN Reason Stop Dose Admin Sodium Chloride 1,000 mls @ 30 mls/hr 10/22/23 06:00 10/22/23 06:12 Sodium Chloride 0.9% IV 10/23/23 05:59 30 mls/hr .Q24H NORRIS Administration Pertinent History/Comorbid Conditions* Medical History (Updated 07/24/23 @ 14:14 by Cuauhtemoc Asencio MD) Recurrent vomiting Depression Anxiety Thoracic compression fracture History of uterine fibroid Surgical History (Updated 08/17/23 @ 07:52 by Cuauhtemoc Asencio MD) Hx of hand surgery right Family History (Updated 02/27/23 @ 13:52 by Karlo Sanchez LPN) Colon cancer Father Pulmonary fibrosis Mother Social History Smoking and tobacco/nicotine status: current every day tobacco/nicotine user cigarettes Packs smoked per day: 1 Years cigarettes smoked: 45 [ Other cigarette details: trying to quit] Alcohol intake: current Alcohol intake frequency: holidays/special occasions only Substance/Drug Use: current Pertinent Exam Findings alert, oriented x 3 and regular rate & rhythm Recommendations Surgery/Procedure today Other Plans: EGD today Coding Level of Care Code Acute Code for Chg Fwd Time Spent (min) 30
--- NOTE | 2023-10-22 07:23 | PC.NURSE ---
Addendum entered by Sheri Fermin RN 10/22/23 07:26: SCOPE PULLED OUT AT APPROXIMATELY 0706 AFTER 3 ATTEMPTS TO REINSERT SCOPE Original Note: SCOPE INSERTION AT 0705, SCOPE PULLED OUT AT 0705 PER ANESTHESIA INSTRUCTION FOR PT SAFETY. SCOPE REINSERTED AT 0715, PROCEDURE COMPLETED.
[2023-10-22 07:33] VITALS: BP 114/62; PULSE 82; RESP 20; TEMP 36.1; O2SAT 92
[2023-10-22 07:43] VITALS: BP 96/50; PULSE 75; RESP 18; O2SAT 94
[2023-10-22 07:49] VITALS: PULSE 70; RESP 16; O2SAT 95
[2023-10-22 07:55] VITALS: PULSE 73
[2023-10-22 07:57] VITALS: BP 102/55; PULSE 76; RESP 18; O2SAT 98
--- NOTE | 2023-10-22 08:25 | ANE.PACU2 ---
Inpatient post-anesthesia follow up: Airway intact: Yes Vital signs: Temperature 97 F Pulse Rate 76 Respiratory Rate 18 Blood Pressure 102/55 Pulse Oximetry 98 Oxygen Delivery Me thod Room Air Oxygen Flow Rate Fraction of Inspir ed Oxygen Hydration adequate: Yes Nausea and vomiting: No Pain level: 1 Mental status: Baseline
== END 2023-10-22 08:29 | disposition home or self-care (01) ==
PROVIDERS: PCP Nurse Practitioner Family; Visit Provider Student in an Organized Health Care Education/Training Program
PROC: 0DJ08ZZ Inspection of Upper Intestinal Tract, Via Natural or Artificial Opening Endoscopic (ICD-10-PCS; CPT 43235; principal; 2023-10-22 07:00)
DX: R11.2 Nausea with vomiting, unspecified (principal); F17.210 Nicotine dependence, cigarettes, uncomplicated
CPT/HCPCS: 43239; 88305; 94640; J2704; J3490; J7030

== ENCOUNTER 2023-11-05 10:52 | Inpatient (IN) | payer MEDICARE, SELFPAY ==
[2023-11-05] VITALS (25 sets, daily range): BP systolic 93–185; BP diastolic 43–102; PULSE 70–121; RESP 16–22; TEMP 36.4–37.6; O2SAT 92–100; BMI 24.0
[2023-11-05] MEDS: sodium chloride 0.9% 1,000 ML 30 ML IV (06:35)
--- NOTE | 2023-11-05 06:35 | W.PM.OPSFHP ---
Same Day Surgery H&P Indication for Procedure/HPI DATE OF PROCEDURE: November 05, 2023 CHIEF COMPLAINT/INDICATIONFOR SURGICAL PROCEDURE: Back pain PREOP DIAGNOSIS: T6 compression fracture PLANNED PROCEDURE: Operation Date: 11/05/23 07:00 Proposed Procedures p Spinal Fusion PSF(Not Applicable) - Minesh Yi DO s Thoracic Decompression(Not Applicable) - Minesh Yi DO Medications/Allergies* Home Medications Medication Instructions Recorded Confirmed Type coenzyme Q10 100 mg capsule 100 mg PO DAILY 10/18/23 11/02/23 History (CoQ-10) fluoxetine 20 mg capsule 20 mg PO DAILY 10/18/23 11/02/23 History Allergies/Adverse Reactions Allergy/AdvReac Type Severity Reaction Status Date / Time Opioids - Morphine Analogues Allergy Severe vomiting Verified 11/05/23 06:12 Pertinent History/Comorbid Conditions* Medical History (Updated 07/24/23 @ 14:14 by Cuauhtemoc Asencio MD) Recurrent vomiting Depression Anxiety Thoracic compression fracture History of uterine fibroid Surgical History (Updated 08/17/23 @ 07:52 by Cuauhtemoc Asencio MD) Hx of hand surgery right Family History (Updated 02/27/23 @ 13:52 by Karlo Sanchez LPN) Colon cancer Father Pulmonary fibrosis Mother Social History Smoking and tobacco/nicotine status: current every day tobacco/nicotine user cigarettes Packs smoked per day: 1 Years cigarettes smoked: 45 [ Other cigarette details: trying to quit] Alcohol intake: current Alcohol intake frequency: holidays/special occasions only Substance/Drug Use: current Pertinent Exam Findings alert, oriented x 3 and procedure specific exam findings Recommendations Surgery/Procedure today Coding Level of Care Code Acute Code for Mike Amato
[2023-11-05] MEDS: albuterol 2.5 mg/3 mL Neb INHALATION (06:38)
[2023-11-05] MEDS: scopolamine 1.5 Patch 1 PATCH TRANSDERMA (06:38)
--- NOTE | 2023-11-05 07:04 | ANES.PREANE2 ---
Pre-Anesthetic Assessment Height/Weight: Height 1.52 m Weight 55.792 kg Temp Pulse Resp BP Pulse Ox O2 Del Method 97.9 F 86 16 164/86 98 Room Air 11/05/23 06:12 11/05/23 06:12 11/05/23 06:12 11/05/23 06:12 11/05/23 06:12 11/05/23 06:12 Preop Diagnosis: T6 compression fracture Operation Date: 11/05/23 07:00 Proposed Procedures p Spinal Fusion PSF(Not Applicable) - Minesh Yi DO s Thoracic Decompression(Not Applicable) - Minesh Yi DO Familial anesthetic complications: Highly reactive airway during EGD scope Was Beta Ellen taken within 24 hours: N/A Was Clonidine taken within 24 hours: N/A Last intake: Intake Last Liquid Date 11/04/23 Last Liquid Time 23:00 Last Solid Date 11/04/23 Last Solid Time 18:00 Social Tobacco and No alcohol Exam alert, oriented x 3, clear to auscultation bilaterally and regular rate & rhythm Airway Dentition: other (very poor dentition per patient, I wouldn't blame you at all if they got damaged ) Pulmonary Chronic Obstructive Pulmonary Disease Anesthetic Plan ASA status: 2 Anesthesia: General Risk of > 500 ml blood loss (7ml/kg in children): Yes, adequate IV access and fluids planned Medications/Allergies Home Medications Medication Instructions Recorded Confirmed Last Taken Type Bone growth stimulator #1 ea 08/13/23 10/05/23 Unknown Rx coenzyme Q10 100 mg capsule 100 mg PO DAILY 10/18/23 11/02/23 10/20/23 History (CoQ-10) fluoxetine 20 mg capsule 20 mg PO DAILY 10/18/23 11/02/23 11/02/23 09:49 History Allergies Allergy/AdvReac Type Severity Reaction Status Date / Time Opioids - Morphine Analogues Allergy Severe vomiting Verified 11/05/23 06:12 Current Medications Generic Name Dose Route Start Last Admin Trade Name Freq PRN Reason Stop Dose Admin Sodium Chloride 1,000 mls @ 30 mls/hr 11/05/23 06:15 11/05/23 06:35 Sodium Chloride 0.9% IV 11/06/23 06:14 30 mls/hr .Q24H NORRIS Administration PFSH Anesthesia Medical History Recurrent vomiting Depression Anxiety Thoracic compression fracture History of uterine fibroid Surgical History (Updated 10/05/23 @ 08:07 by MAGAN Singh) Hx of hand surgery right Family History Father Colon cancer Mother Pulmonary fibrosis Social History (Updated 10/05/23 @ 08:08 by MAGAN Singh) Smoking and tobacco/nicotine status: current every day tobacco/nicotine user cigarettes Packs smoked per day: 1 Years cigarettes smoked: 45 [ Other cigarette details: trying to quit] Alcohol intake: current Alcohol intake frequency: holidays/special occasions only Substance/Drug Use: current Data Anesthesia Cardiac Studies: No Data to Display
[2023-11-05] MEDS: ceFAZolin 2,000 mg SDV 2000 MG IVP ×3 (07:34→23:05)
[2023-11-05] MEDS: lidocaine-epi 1% 20 mL INJ INJECTION (07:57)
[2023-11-05] MEDS: vancomycin 1,000 MG SDV 1000 MG XX (09:13)
[2023-11-05] MEDS: ipratropium-albuterol 3 mL Neb (11:16)
[2023-11-05] MEDS: fentaNYL 50 mcg/mL INJ 2mL IVP (11:17)
--- NOTE | 2023-11-05 11:20 | PM.OP ---
Operative Report Date of procedure: November 05, 2023 Pre-op diagnosis: Pathological wedge osteoporotic compression fracture T6 Post-op diagnosis: same Procedure done: 1. T4-T9 posterior spine fusion 2. T4-T9 posterior spine instrumentation 3. T6-7 laminectomy and partial facetectomy 4. T5-6 laminectomy with partial facetectomy 5. Stereotactic computer navigation of the spine. 6. Use of allograft 7. Biopsy of T6 Surgeon: Minesh Yi DO Estimated blood loss (mL): 250 Procedure: 1. T4-T9 posterior spine fusion 2. T4-T9 posterior spine instrumentation 3. T6-7 laminectomy and partial facetectomy 4. T5-6 laminectomy with partial facetectomy 5. Stereotactic computer navigation of the spine. 6. Use of allograft 7. Biopsy of T6 Patient brought to the op suite after undergoing anesthesia was placed in the prone position. All areas impingement well-padded. Patient's prepped and draped normal sterile fashion. Skin incision was made from T3 down to T10. Thoracolumbar fascia was split subperiosteal dissection was made from T4 down to T9 out to the transverse processes bilaterally. A spinous process clamp was then placed onto T10 the fiducial for the computer navigation and then was attached onto the spinous process clamp. The C-arm was brought in and the serum spun around the patient the information from serum was then loaded in the computer and this information was used to help used to guide the pedicle screws to be placed. Next tension was brought to placing the pedicle screws. A drill was used to open up the starting point followed by using the gearshift with the computer navigation. Followed by the pedicle probe. Followed by placing the screw that was computer navigated. This was done at T9 bilateral, T8 bilaterally, T7 bilaterally, T5 bilaterally, and T4 bilaterally. Next tension was brought to getting the biopsy at T6. This was done by using the computer navigated gearshift probe. To guide through the left pedicle into the body of the vertebrae. Bone biopsy was then tracked through the same hole and then driven and further to get the biopsy. Specimen was taken and sent to pathology for evaluation. Next attention was brought to doing the laminectomy at the T6-7 level. Laminectomies performed after biting down the spinous process with a rongeur. High-speed bur was used to perform the laminectomy and take down the medial aspect of the facets. Then the Kerrison was brought in to take down the medial aspect of facet as well as finish out the laminectomy site. The ligamentum flavum was then taken down from T6-T7. Next tension was brought to the T5-6 level. Again spinous process was taken out a rongeur. High-speed bur was then used to take down the lamina as well as medial aspect facet joint the Kerrison rongeur was then used to finish the remaining lamina and medial aspect of the facet joint. Ligament flavum was taken down from T5-T6. And the decompression was completed. Next tension was brought to placing the rods. Rods were placed bilaterally from T4 down to T9. Caps were then screwed on torqued into position. Wound was then irrigated. Then the bone was decorticated with a high-speed bur and then the ostial amp bone graft was then placed and packed in the gutters. Vancomycin powder was placed deep drain was placed and wound was closed in layered fashion with 0 Vicryl 2-0 Vicryl and Monocryl suture. Sterile dressings were applied patient was transferred to the PACU in stable condition.
[2023-11-05] MEDS: HYDROmorphone 1 mg/mL INJ 1 mL 0.5 MG IVP (11:37)
--- NOTE | 2023-11-05 12:05 | ANE.PACU2 ---
Inpatient post-anesthesia follow up: Airway intact: Yes Vital signs: Temperature 98.0 F Pulse Rate 103 Respiratory Rate 20 Blood Pressure 120/64 Pulse Oximetry 97 Oxygen Delivery Me thod Nasal Cannula Oxygen Flow Rate 3 Fraction of Inspir ed Oxygen Hydration adequate: Yes Nausea and vomiting: No Pain level: 1 Mental status: Baseline
[2023-11-05] MEDS: lactated ringers 1,000 ML 90 ML IV ×2 (12:37→23:05)
--- NOTE | 2023-11-05 13:02 | XR_ITS ---
WS: [id number] Lumbar spine, C-arm fluoroscopy views, 11/05/2023 Clinical Data: OR PICS Comparison: Thoracic spine, 10/02/2023 Findings: Dr. Yi performed a posterior thoracic fusion. XR/XR lumbar spine 2-3V* 46701 Impression: Posterior thoracic fusion.
[2023-11-05] MEDS: HYDROcodone-acetaminophen 5-325 mg Tablet PO (13:24)
[2023-11-05 14:43] LABS: Hematocrit 27.7 % (36-47)
[2023-11-05] MEDS: ondansetron 2 mg/ML SDV 2 mL 4 MG IVP ×2 (16:53→23:04)
[2023-11-05] MEDS: ketorolac 30 mg/mL INJ IVP (19:59)
[2023-11-05] MEDS: HYDROmorphone 1 mg/mL INJ 1 mL 0.2 MG IVP (20:01)
--- NOTE | 2023-11-05 20:14 | PC.NURSE ---
Zofran did not relieve patient's nausea. Dr. Yi contacted. PRN Zofran ordered.
[2023-11-05] MEDS: metoclopramide 5 mg/mL SDV 2 mL IVP (20:44)
--- NOTE | 2023-11-05 23:13 | PC.NURSE ---
Patient refusing any type of narcotics/opiods at this time due to nausea and dry heaving.
--- NOTE | 2023-11-05 23:25 | PC.NURSE ---
Dr. Powell contacted due to patient having dry heaving and nausea not relieved by Zofran or Reglan. Patient is also in pain but will not take pain medications, stating she thinks it will make her nausea worse. Phenergan x1 ordered.
[2023-11-05] MEDS: promethazine 25 mg/mL SDV 1 mL 12.5 MG IM (23:58)
[2023-11-06] VITALS (12 sets, daily range): BP systolic 132–196; BP diastolic 62–92; PULSE 92–111; RESP 16–20; TEMP 36.6–37.1; O2SAT 90–91
[2023-11-06] MEDS: HYDROmorphone 1 mg/mL INJ 1 mL 0.2 MG IVP ×6 (02:16→20:15)
[2023-11-06] MEDS: ketorolac 30 mg/mL INJ IVP (02:30)
[2023-11-06] MEDS: metoclopramide 5 mg/mL SDV 2 mL IVP (02:30)
[2023-11-06 04:29] LABS: Hematocrit 25.6 % (36-47)
--- NOTE | 2023-11-06 05:24 | PC.NURSE ---
Patient earlier in shift asked for Palak Cassie, stating it helps her nausea. Unable to find any Palak Cassie in any vending machines or on any units in the hospital. cost control supervisor notified and was also unable to find any. Patient stated I wanna talk to the person who does the ordering around here and ask them why they don't have some damn Palak Cassie. Another patient down the aguirre was yelling help, someone help me. Another nurse attended to that patient. This patient stated I feel for him, I need help too. I stated to patient Is there something I can do to better care for you? Patient states no, other than get me some Palak Cassie. I stated We don't have any Palak Cassie, but if there is something else I can do to better care for you, please let me know. Patient states no, you're doing fine.
--- NOTE | 2023-11-06 05:29 | PC.NURSE ---
I rounded on patient at this time and asked her if she needed anything. Patient stated no. I asked are you sure you don't need any medicine for pain or nausea? Patient states no, I'm okay.
--- NOTE | 2023-11-06 06:34 | PC.NURSE ---
SCDs placed on patient, however no pump available.
[2023-11-06] MEDS: ondansetron 2 mg/ML SDV 2 mL 4 MG IVP (07:13)
[2023-11-06] MEDS: ceFAZolin 2,000 mg SDV 2000 MG IVP (07:13)
[2023-11-06] MEDS: fluoxetine 20 mg Capsule PO (08:07)
[2023-11-06] MEDS: docusate sodium 100 mg Capsule PO ×2 (08:07→17:02)
--- NOTE | 2023-11-06 09:41 | PC.CHAP ---
Pastoral Care Encounter/Spiritual Assessment Type of Contact [] Declined automobile glass technician visit [] Patient/Family/Request visit [] Outpatient visit [] Follow-up visit [] Physician referral [] Code/Alert [] Routine visit [] Staff referral [] Actively dying [x] Patient sleeping [] Family support [] [] Out of room [] Palliative care [] [] Receiving care in room [] Pre-surgical visit [] Trauma [] Long length of stay [] ICU visit [] Other: Relational/Emotional Strength [] Patient feels connected with others/family/visitors/staff [] Distress [] Loneliness/isolation [] Abandonment Spirituality of Patient [] Person of Ria [] Attends Amish of their Ria [] Believes in Prayer [] Reads Bible or Christian materials [] There are Spiritual issues to be addressed Sales Merchandise Associate Interventions [] Prayer [] Active listening [] Non-anxious presence [] Spiritual/emotional support [] Crisis/trauma care [] Spiritual counseling [] Bereavement support [] Provided bereavement packet [] Provided Bible/devotional materials [] Provided toy/stuffed animal, coloring book to patient or family member [] Provided Communion [] Anointing/[place] [] Salvation [] Completed spiritual assessment [] Other: Impact on Illness or Injury [] Angry [] Fearful [] Anxious [] Often cries [] Exhaustion [] Unable to work [] Unable to attend protestant [] Unable to walk/stand [] Unable to read [] Unable to drive [] Unable to eat/drink [] Unable to sleep [] Unable to be with family [] Patient intubated [] Other: Summary Time spent with patient
--- NOTE | 2023-11-06 09:49 | P.PN_ITS ---
Subjective 2 Subjective: Patient is postop day #1 thoracic fusion pain is relatively controlled at this time Vitals/I&O/Wt Last Vital Signs Temp 98.3 F 11/06/23 07:51 Pulse 92 11/06/23 07:51 Resp 19 H 11/06/23 07:51 BP 132/70 11/06/23 07:51 Pulse Ox 90 11/06/23 07:51 O2 Del Method Room Air 11/06/23 07:51 O2 Flow Rate 3 11/05/23 17:04 11/05/23 11/06/23 11/06/23 22:59 06:59 14:59 Intake Total 950 / 1550 1182 / 2732 240 / 240 Output Total 700 / 950 1380 / 2330 Balance 250 / 600 -198 / 402 240 / 240 Weight last 48 hrs Weight 124 lb 3.2 oz Weight 123 lb Weight 123 lb Physical Exam 2 Narrative: Patient in bed has set up this side is not well for therapy yet. Urinary Catheter Management: De Souza: Cath Placed During This Visit: yes Reason for Continuing Indwelling Catheter: Perioperative Use in Selected Surgeries Urinary Catheter Date of Insertion: 11/05/23 Urinary Catheter Time of Insertion: 07:22 Data 11/06/23 04:20 A&P Assessment and plan (1) History of thoracic spinal fusion: Postop day 1 thoracic fusion. Plan is to get her up with therapy and get case management to get her to a senior care because she does not have any help at home. Attestations 2 Medical Necessity Statement*: Pain control Coding Level of Care Code Acute Code for Chg Fwd Diagnoses History of thoracic spinal fusion Z98.1
[2023-11-06] MEDS: lactated ringers 1,000 ML 90 ML IV ×2 (10:41→20:17)
--- NOTE | 2023-11-06 19:09 | PC.NURSE ---
Pt states cant take any po pain medication because it makes her throw up even with anti-nausea medication. This nurse educated that po pain medications are given at rehab and not IV pain medication. That we need to figure something for her to control pain that she can take orally. Pt states I guess I probably will just have to suffer .
[2023-11-07] VITALS (8 sets, daily range): BP systolic 118–163; BP diastolic 62–82; PULSE 99–109; RESP 16–20; TEMP 36.8–36.9; O2SAT 93–96
[2023-11-07] MEDS: HYDROmorphone 1 mg/mL INJ 1 mL 0.2 MG IVP ×3 (02:03→16:48)
[2023-11-07] MEDS: lactated ringers 1,000 ML 90 ML IV (06:50)
[2023-11-07] MEDS: docusate sodium 100 mg Capsule PO (07:59)
[2023-11-07] MEDS: fluoxetine 20 mg Capsule PO (07:59)
--- NOTE | 2023-11-07 09:59 | P.PN_ITS ---
Subjective 2 Subjective: Patient pain controlled at this time. Resting in bed. Awaiting possible long term placement. Vitals/I&O/Wt Last Vital Signs Temp 98.4 F 11/07/23 08:00 Pulse 107 H 11/07/23 08:00 Resp 17 11/07/23 08:00 BP 143/75 11/07/23 08:00 Pulse Ox 93 11/07/23 08:00 O2 Del Method Room Air 11/07/23 08:00 O2 Flow Rate 3 11/05/23 17:04 11/06/23 11/07/23 11/07/23 22:59 06:59 14:59 Intake Total 1224 / 2824 949.5 / 3773.5 240 / 240 Balance 1224 / 2824 949.5 / 3773.5 240 / 240 Weight last 48 hrs Weight 123 lb 9.6 oz Weight 124 lb 3.2 oz Weight 123 lb Physical Exam 2 Narrative: Pain controlled sleeping in bed when I walked in the room. Urinary Catheter Management: De Souza: Cath Placed During This Visit: yes, but has since been removed by the nurse Reason for Continuing Indwelling Catheter: Decision to DC Catheter Urinary Catheter Date of Insertion: 11/05/23 Urinary Catheter Time of Insertion: 07:22 Date Urinary Catheter Removed: 11/06/23 Time Urinary Catheter Discontinued: 09:30 Data 11/06/23 04:20 A&P Assessment and plan (1) History of thoracic spinal fusion: Patient is postop day 2 thoracic fusion. At this point patient can be discharged to long term. Awaiting case management for placement. Attestations 2 Medical Necessity Statement*: Placement to long term Coding Level of Care Code Acute Code for Chg Fwd Diagnoses History of thoracic spinal fusion Z98.1
[2023-11-07] MEDS: metoclopramide 5 mg/mL SDV 2 mL IVP (11:48)
--- NOTE | 2023-11-07 12:03 | PC.SOCIAL ---
IMM Updated Updated pt on IMM. No questions voiced. Provided pt a copy. Initialed, dated, & timed a copy & placed in chart.
--- NOTE | 2023-11-07 12:56 | P.DS_ITS ---
Discharge Providers Date of Admission: 11/05/23 10:52 Date of Discharge: November 07, 2023 Attending Provider at Admission: Minesh Yi DO Attending Provider at Discharge: Minesh Yi DO Primary Care Provider: BLAIRE Harding Diagnoses at Discharge Discharge Diagnosis (1) History of thoracic spinal fusion: Status: Acute Reason for Visit Reason for Visit: M54.6 Physical Exam Urinary Catheter Management: De Souza: Cath Placed During This Visit: yes, but has since been removed by the nurse Reason for Continuing Indwelling Catheter: Decision to DC Catheter Urinary Catheter Date of Insertion: 11/05/23 Urinary Catheter Time of Insertion: 07:22 Date Urinary Catheter Removed: 11/06/23 Time Urinary Catheter Discontinued: 09:30 Discharge Data Studies Completed and Pending Completed Studies During Hospitalization Category Date Time Status XR lumbar spine 2-3V* [id number] Routine Exams 11/05/23 13:02 Completed Pending at discharge Category Date Time Status Pathology: Surgical [PTH] Routine Pth 11/05/23 09:41 Received Radiology Impressions Lumbar Spine X-Ray 11/05/23 13:02 Impression: Posterior thoracic fusion. Laboratory Results Hgb 8.30 g/dL (11.27-16.99) L 11/06/23 04:20 Hct 25.6 % (36-47) L 11/06/23 04:20 Blood Type O Positive 11/05/23 06:25 Rho(D) Type Rh positive 11/05/23 06:25 Antibody Screen Negative 11/05/23 06:25 Vitals Last Vital Signs Temp 98.2 F 11/07/23 12:00 Pulse 102 H 11/07/23 12:00 Resp 19 H 11/07/23 12:00 BP 118/62 11/07/23 12:00 Pulse Ox 95 11/07/23 12:00 O2 Del Method Room Air 11/07/23 12:00 O2 Flow Rate 3 11/05/23 17:04 Discharge Plan Discharge Patient Disposition: Home Condition: Stable Prescriptions: New hydrocodone-acetaminophen 5-325 mg tablet 1 - 2 tab PO .Q4-6H Qty: 40 0RF Continued coenzyme Q10 [CoQ-10] 100 mg Capsule 100 mg PO DAILY fluoxetine 20 mg capsule 20 mg PO DAILY Rx Instructions: Take 1 capsule by mouth once daily No Action (DME) Bone growth stimulator See Rx Instructions .Route .MEDSUPPLY Qty: 1 0RF Rx Instructions: As directed Discharge Orders: Discharge Order (Routine); Ordered 11/07/23 Ordered By: Minesh Yi Discharge Diet: Advance as tolerated Discharge Activity: Limit activity as instructed Patient Instructions: Acute Wound Care (DC), Opioid Safety, Post Anesthesia Care Activity Restrictions/Additional Instructions: Thank you for [facility] for your care! The following is a list of instructions, from your provider, to follow upon your discharge to ensure you have the optimal recovery from your recent injury orsurgery. Follow-up care is a moran part of your treatment and safety. Be sure to make and go to all appointments, and call your doctor if you are having problems. If you do not already have a follow-up appointment made, call Dr. Yi office in the next 1-3 days to make follow up appointment for 2 weeks at [phone]. It is also a good idea to know your test results and keep a list of the medicines you take. Medications will be prescribed for you at your provider's discretion. These medications are to be used as instructed; if they are taken more often that prescribed they will not be refilled early and in most cases will not be refilled at all. > When a refill is needed,you should contact panchito hammond 2-3 business days before your prescription runs out. Medications will NOT be refilled by developer relations manager providers after hours! > Many pain medications contain Tylenol (Acetaminophen). Do not consume more than 4,000 mg of Tylenol per day in total with any combination ofmedications. > Pain medications can cause constipation. Please use an over the counter stool softener as directed, while taking pain medications. Consulty our local pharmacist with questions or recommendations on stool softeners. If constipation persists, contact our office or your primary care provider. > While under our care,you are not to receive pain medications or other controlled substances from any other provider unless our office is notified and approves. Any attempts to do so will result in refusal to prescribe any further pain medications and possible dismissal from our practice. ? Your wound and/or dressing should remain clean and dry for 2 days after surgery. On postoperative day 2 (48 hours after your surgery) the dressing (if present) should be removed and it is okay to shower and get the incision wet. Pad dry afterwards. No further dressing should be required from that point on. Do not put any creams or ointments on theincision > It is normal for there to be a small amount of discharge (bloody or blood tinged) present from a surgical wound for the first 1-3days. > The wound should be examined twice a day for signs of infection. Mild redness or bruising is to be expected but indications that an infection maybe starting would include; An increase in redness, swelling, or discharge, a foul odor present around the incision, and/or a fever greater than 101 ?F ? Showering is permitted, however we ask that you do not take a bath, sit in a whirlpool / Jacuzzi, or go swimming for 1 month. For only the first 2 days after surgery, lt wilt be necessary for you to cover your wound/dressing with plastic and tape to keep it dry. ? Walking is essential for the healing process after surgery. We would like you to slowly advance your walking. This should be done on relatively flat clear ground (inside or out) or can be done on a treadmill. Remember this goal does not have to happen all at once, slowly increase your distance and duration. This can be broken into more more than one walk per day as tolerated. Patients who walk as directed after surgery rarely require Physical Therapy. In the unlikely event this issue arises your provider will direct hospital staff to make the appropriate arrangements. ? No lifting over 5 pounds {a gallon of milk) or bending/twisting until further notice. Each of these activities places an unnecessary amount of stress onto the body and can impede the delicate healing process. > Instead of bending at the waist, keep your back straight and bend at the knees. > Instead of twisting your torso, keep your back straight and turn your entire body with your feet. ? You may sleep in any position which makes you comfortable. Many patients find comfort sleeping in a reclining chair. It is not abnormal to have difficulty sleeping for the first several weeks following your surgery. We recommend trying Benadry! or Tylenol PM as directed to help with your sleeping difficulties. Both medications are over the counter and available withoutprescription. ? NO SMOKING!!! Smoking dramatically increases the probability of developing postoperative wound infections. ? Common complaints after lumbar and/or thoracic spine surgery include, but are not limited to: numbness and/or tingling in the legs, pain around the incision and surrounding tissues, muscle spasms, or stiffness of the middle to low back. Contact our office if these symptoms persist or if an acute change occurs. ? No driving for the first 3-5days, and not while taking narcotics until seen at your follow-up appointment and cleared. There are no restrictions for riding on short trips, however if you take a longer trip, arrangements should be made to make regular stops to get out of the vehicle and stretch . ? Swelling is an unfortunate event that will take place with any surgery and is the primary source of your postoperative discomfort. While walking and regular approved activities helps control inflammation, there are additional steps you can take to minimizeswelling. > Place ice over the surgical site and surrounding tissue for twenty minutes, followed by applying a low/medium heat (heating pad) for an additional twenty minutes every 1-2 hours as needed for painrelief. Discharge Attestations Time Spent in Discharge Care*: less than 30 min Quality Metrics Clinical Quality Measures [ No reported AMI, CVA or VTE this stay] Coding Level of Care Code Acute Code for Chg Fwd Diagnoses History of thoracic spinal fusion Z98.1
[2023-11-07] MEDS: ondansetron 2 mg/ML SDV 2 mL 4 MG IVP (16:48)
== END 2023-11-07 15:00 | disposition home or self-care (01) | DRG 458 ==
LOC: MEDSURG 12:21
PROVIDERS: Admitting Provider Orthopaedic Surgery; PCP Nurse Practitioner Family; Visit Provider Orthopaedic Surgery
PROC: 0RG70K1 Fusion of 2 to 7 Thoracic Vertebral Joints with Nonautologous Tissue Substitute, Posterior Approach, Posterior Column, Open Approach (ICD-10-PCS; principal; 2023-11-05 07:00)
PROC: 0RG70K1 Fusion of 2 to 7 Thoracic Vertebral Joints with Nonautologous Tissue Substitute, Posterior Approach, Posterior Column, Open Approach (ICD-10-PCS; CPT 63003; 2023-11-05 07:00)
DX: M48.54XA Collapsed vertebra, not elsewhere classified, thoracic region, initial encounter for fracture (principal); Z88.5 Allergy status to narcotic agent; F17.210 Nicotine dependence, cigarettes, uncomplicated; Z79.899 Other long term (current) drug therapy
CPT/HCPCS: 36415; 51702; 72100; 76000; 85014; 85018; 86850; 86900; 88307; 88311; 96372; 97116; 97161; A7003; C1713; J0131; J0690; J1100; J1170; J1885; J2250; J2371; J2405; J2550; J2704; J2765; J3010; J3370; J3490; J7030; J7120; J7613; P9045

== ENCOUNTER → 2023-11-06 11:35 | Outpatient (BNVA) | payer MEDICARE, SELFPAY | PROVIDERS: PCP Nurse Practitioner Family; Visit Provider Student in an Organized Health Care Education/Training Program | DX: Z09 Encounter for follow-up examination after completed treatment for conditions other than malignant neoplasm (principal) | CPT/HCPCS: 99213 ==

== ENCOUNTER → 2023-11-20 14:48 | Outpatient (BNVA) | payer MEDICARE, SELFPAY | PROVIDERS: PCP Nurse Practitioner Family; Visit Provider Orthopaedic Surgery | DX: Z98.1 Arthrodesis status (principal) | CPT/HCPCS: 99024 ==

== ENCOUNTER 2023-12-11 12:28 | Oncology outpatient (recurring) (ONCR) | payer MEDICARE, SELFPAY ==
[2023-12-11 13:04] LABS: Basophils % 0.3 %; Eosinophils # 0.1 10^3/uL (0.0-0.8); Eosinophils % 0.5 %; Hematocrit 26.1 % (36-47); Lymphocytes # 2.8 10^3/uL (0.8-4.8); Lymphocytes % 29.3 %; Mean Corpuscular Hemoglobin 22.2 pg (27-33); Mean Corpuscular Volume 71.5 fl (85-98); Mean Platelet Volume 9.9 fL (7.4-10.4); Monocytes # 0.6 10^3/uL (0.2-0.9); Monocytes % 6.7 %; Neutrophils # 5.88 10^3/uL (1.8-7.7); Neutrophils % 62.9 %; Nucleated Red Blood Cells % 0 %; Platelet Count 382 10^3/cmm (157-399); Red Blood Count 3.65 10^6/uL (3.85-5.65); Red Cell Distribution Width 17.4 % (12.1-15.1); White Blood Count 9.37 10^3/uL (3.29-11.43)
[2023-12-11 13:22] LABS: Alanine Aminotransferase 7 U/L (0-33); Albumin Level 3.6 g/dL (3.5-5.2); Alkaline Phosphatase 152 U/L (35-105); Anion Gap 13.2 (5-19); Aspartate Amino Transferase 13 U/L (0-32); Blood Urea Nitrogen 13 mg/dL (8-23); Calcium 8.6 mg/dL (8.5-10.5); Carbon Dioxide 27 mmol/L (22-29); Chloride 99 mmol/L (98-107); Creatinine Clr Calc Pharmacy 52.5048; Globulin 3.1 g/dL (1.3-4.6); Glomerular Filtration Rate 100.3 mL/min (90-130); Glucose 93 mg/dL (65-115); Osmolality Calculated 282 mOsm/kg (285-295); Potassium 3.2 mmol/L (3.5-5.1); Sodium 136 mmol/L (136-145); Total Bilirubin 0.3 mg/dL (0.15-1.2); Total Protein 6.7 g/dL (6.6-8.7)
[2023-12-11 13:30] LABS: Ferritin 42 ng/mL (15-150); Iron 14 ug/dL (37-145); Percent Saturation 3.8 % (20-50); Total Iron Binding Capacity 359 mcg/dl; Unsaturated Iron Binding 345 ug/dL (112-347)
[2023-12-11 13:38] LABS: 25 Hydroxy Vitamin D 22 ng/mL (30-100)
== END 2023-12-13 23:59 | disposition home or self-care (01) ==
PROVIDERS: Nurse Practitioner Family; PCP Nurse Practitioner Family; Visit Provider Internal Medicine Medical Oncology
DX: Z53.9 Procedure and treatment not carried out, unspecified reason (principal); D72.829 Elevated white blood cell count, unspecified; M81.0 Age-related osteoporosis without current pathological fracture; D64.9 Anemia, unspecified; E55.9 Vitamin D deficiency, unspecified
CPT/HCPCS: 36415; 80053; 82306; 82728; 83540; 83550; 85025; 99214

== ENCOUNTER → 2023-12-19 14:19 | Outpatient (BNVA) | payer MEDICARE, SELFPAY | PROVIDERS: PCP Nurse Practitioner Family; Visit Provider Nurse Practitioner Family | DX: N39.0 Urinary tract infection, site not specified (principal) | CPT/HCPCS: 81000; 87086 ==

== ENCOUNTER → 2023-12-20 11:03 | Outpatient (BNVA) | payer MEDICARE, SELFPAY | PROVIDERS: PCP Nurse Practitioner Family; Visit Provider Orthopaedic Surgery | DX: Z98.1 Arthrodesis status (principal) | CPT/HCPCS: 72072; 99024 ==

== ENCOUNTER 2024-01-22 11:06 | Oncology outpatient (recurring) (ONCR) | payer MEDICARE, SELFPAY ==
[2024-01-22 12:08] LABS: Basophils # 0.1 10^3/uL (0.0-0.1); Basophils % 0.5 %; Eosinophils # 0.1 10^3/uL (0.0-0.8); Eosinophils % 0.5 %; Hematocrit 36.7 % (36-47); Lymphocytes # 2.7 10^3/uL (0.8-4.8); Mean Corpuscular HGB Conc 29.7 g/dL (30-55); Mean Corpuscular Hemoglobin 21.7 pg (27-33); Mean Corpuscular Volume 73.1 fl (85-98); Mean Platelet Volume 9.4 fL (7.4-10.4); Monocytes # 0.6 10^3/uL (0.2-0.9); Monocytes % 5.3 %; Neutrophils # 7.47 10^3/uL (1.8-7.7); Neutrophils % 68.3 %; Nucleated Red Blood Cells % 0 %; Platelet Count 397 10^3/cmm (157-399); Red Blood Count 5.02 10^6/uL (3.85-5.65); Red Cell Distribution Width 22.1 % (12.1-15.1); White Blood Count 10.94 10^3/uL (3.29-11.43)
[2024-01-22 12:55] LABS: 25 Hydroxy Vitamin D 24 ng/mL (30-100); Alanine Aminotransferase 6 U/L (0-33); Alkaline Phosphatase 127 U/L (35-105); Aspartate Amino Transferase 13 U/L (0-32); Blood Urea Nitrogen 11 mg/dL (8-23); Calcium 9.7 mg/dL (8.5-10.5); Carbon Dioxide 27 mmol/L (22-29); Chloride 99 mmol/L (98-107); Creatinine Clr Calc Pharmacy 52.3038; Ferritin 30 ng/mL (15-150); Globulin 3.5 g/dL (1.3-4.6); Glucose 95 mg/dL (65-115); Iron 25 ug/dL (37-145); Osmolality Calculated 281 mOsm/kg (285-295); Percent Saturation 6.8 % (20-50); Sodium 136 mmol/L (136-145); Total Bilirubin 0.2 mg/dL (0.15-1.2); Total Iron Binding Capacity 367 mcg/dl; Total Protein 7.5 g/dL (6.6-8.7); Unsaturated Iron Binding 342 ug/dL (112-347)
== END 2024-02-12 23:59 | disposition home or self-care (01) ==
PROVIDERS: Nurse Practitioner Family; PCP Nurse Practitioner Family; Visit Provider Internal Medicine Medical Oncology
DX: M81.0 Age-related osteoporosis without current pathological fracture; D50.9 Iron deficiency anemia, unspecified; K29.50 Unspecified chronic gastritis without bleeding; E55.9 Vitamin D deficiency, unspecified; D72.829 Elevated white blood cell count, unspecified
CPT/HCPCS: 36415; 80053; 82306; 82728; 83540; 83550; 85025; 99214

== ENCOUNTER → 2024-01-29 10:53 | Outpatient (BNVA) | payer MEDICARE, SELFPAY | PROVIDERS: PCP Nurse Practitioner Family; Visit Provider Orthopaedic Surgery | DX: Z98.1 Arthrodesis status (principal) | CPT/HCPCS: 72072; 99024 ==

== ENCOUNTER 2024-03-04 12:45 | Oncology outpatient (recurring) (ONCR) | payer MEDICARE, SELFPAY ==
[2024-02-18 09:16] VITALS: BP 149/68; PULSE 85; RESP 16; TEMP 36.8; O2SAT 98
[2024-02-18] MEDS: iron sucrose 200 MG in sodium chloride 0.9% (100 ml) 100 ML 220 MG IV (09:44)
[2024-02-18 10:21] VITALS: BP 168/77; PULSE 76; RESP 16; O2SAT 95
[2024-02-20] MEDS: iron sucrose 200 MG in sodium chloride 0.9% (100 ml) 100 ML 220 MG IV (14:22)
[2024-02-20 15:00] VITALS: BP 152/78; PULSE 78; RESP 17; TEMP 36.1; O2SAT 97
[2024-02-25 10:00] VITALS: BP 158/87; PULSE 76; RESP 16; TEMP 36.6; O2SAT 95
[2024-02-25] MEDS: iron sucrose 200 MG in sodium chloride 0.9% (100 ml) 100 ML 220 MG IV (10:36)
[2024-02-25 11:23] VITALS: BP 173/76; PULSE 76; RESP 16; TEMP 36.4; O2SAT 94
[2024-02-27] MEDS: iron sucrose 200 MG in sodium chloride 0.9% (100 ml) 100 ML 220 MG IV (09:03)
[2024-02-27 10:29] VITALS: BP 147/79; PULSE 78; RESP 15; TEMP 37; O2SAT 96
[2024-02-29 10:05] VITALS: BP 153/71; PULSE 79; RESP 16; TEMP 36.5; O2SAT 99
[2024-02-29] MEDS: iron sucrose 200 MG in sodium chloride 0.9% (100 ml) 100 ML 220 MG IV (10:39)
[2024-02-29 11:33] VITALS: BP 165/82; PULSE 68; RESP 16; TEMP 36.9; O2SAT 94
[2024-03-04 13:11] LABS: Basophils # 0.1 10^3/uL (0.0-0.1); Basophils % 0.7 %; Eosinophils # 0.1 10^3/uL (0.0-0.8); Eosinophils % 0.8 %; Hematocrit 41.9 % (36-47); Lymphocytes # 3.2 10^3/uL (0.8-4.8); Lymphocytes % 32.8 %; Mean Corpuscular Hemoglobin 24.9 pg (27-33); Mean Corpuscular Volume 80.3 fl (85-98); Mean Platelet Volume 9.9 fL (7.4-10.4); Monocytes # 0.5 10^3/uL (0.2-0.9); Monocytes % 4.7 %; Neutrophils # 5.93 10^3/uL (1.8-7.7); Neutrophils % 60.8 %; Nucleated Red Blood Cells % 0 %; Platelet Count 285 10^3/cmm (157-399); Red Blood Count 5.22 10^6/uL (3.85-5.65); Red Cell Distribution Width 24.5 % (12.1-15.1); White Blood Count 9.76 10^3/uL (3.29-11.43)
[2024-03-04 13:27] LABS: Alanine Aminotransferase 9 U/L (0-33); Albumin Level 3.9 g/dL (3.5-5.2); Alkaline Phosphatase 126 U/L (35-105); Anion Gap 14.6 (5-19); Aspartate Amino Transferase 16 U/L (0-32); Blood Urea Nitrogen 16 mg/dL (8-23); Calcium 9.1 mg/dL (8.5-10.5); Carbon Dioxide 25 mmol/L (22-29); Chloride 102 mmol/L (98-107); Globulin 2.8 g/dL (1.3-4.6); Glucose 98 mg/dL (65-115); Osmolality Calculated 285 mOsm/kg (285-295); Potassium 4.6 mmol/L (3.5-5.1); Sodium 137 mmol/L (136-145); Total Bilirubin 0.2 mg/dL (0.15-1.2); Total Protein 6.7 g/dL (6.6-8.7)
[2024-03-04 14:09] LABS: Ferritin 511 ng/mL (15-150); Iron 67 ug/dL (37-145); Percent Saturation 27.6 % (20-50); Total Iron Binding Capacity 242 mcg/dl; Unsaturated Iron Binding 175 ug/dL (112-347)
== END 2024-03-14 23:59 | disposition home or self-care (01) ==
PROVIDERS: Nurse Practitioner Family; PCP Nurse Practitioner Family; Visit Provider Internal Medicine Medical Oncology
DX: D50.9 Iron deficiency anemia, unspecified; K29.50 Unspecified chronic gastritis without bleeding; Z53.9 Procedure and treatment not carried out, unspecified reason; D72.829 Elevated white blood cell count, unspecified; M81.0 Age-related osteoporosis without current pathological fracture; E55.9 Vitamin D deficiency, unspecified
CPT/HCPCS: 36415; 80053; 82728; 83540; 83550; 85025; 96365; 96366; 99214; J1756

== ENCOUNTER → 2024-04-29 10:39 | Outpatient (BNVA) | payer MEDICARE, SELFPAY | PROVIDERS: PCP Nurse Practitioner Family; Visit Provider Orthopaedic Surgery | DX: Z98.1 Arthrodesis status (principal) | CPT/HCPCS: 72072; 99213 ==

== ENCOUNTER 2024-06-10 07:56 | Oncology outpatient (recurring) (ONCR) | payer MEDICARE, SELFPAY ==
[2024-06-10 08:37] LABS: Basophils # 0.1 10^3/uL (0.0-0.1); Basophils % 0.8 %; Eosinophils # 0.1 10^3/uL (0.0-0.8); Eosinophils % 1.3 %; Hematocrit 42.3 % (36-47); Lymphocytes # 3.6 10^3/uL (0.8-4.8); Lymphocytes % 36.3 %; Mean Corpuscular HGB Conc 32.9 g/dL (30-55); Mean Corpuscular Hemoglobin 30.1 pg (27-33); Mean Corpuscular Volume 91.6 fl (85-98); Mean Platelet Volume 10.1 fL (7.4-10.4); Monocytes # 0.5 10^3/uL (0.2-0.9); Monocytes % 5.1 %; Neutrophils # 5.58 10^3/uL (1.8-7.7); Neutrophils % 56.2 %; Nucleated Red Blood Cells % 0 %; Platelet Count 278 10^3/cmm (157-399); Red Blood Count 4.62 10^6/uL (3.85-5.65); Red Cell Distribution Width 13.2 % (12.1-15.1); White Blood Count 9.94 10^3/uL (3.29-11.43)
[2024-06-10 09:06] LABS: Alanine Aminotransferase 9 U/L (0-33); Albumin Level 4.2 g/dL (3.5-5.2); Alkaline Phosphatase 120 U/L (35-105); Anion Gap 14.3 (5-19); Aspartate Amino Transferase 15 U/L (0-32); Blood Urea Nitrogen 19 mg/dL (8-23); Calcium 9.4 mg/dL (8.5-10.5); Carbon Dioxide 24 mmol/L (22-29); Chloride 101 mmol/L (98-107); Creatinine Clr Calc Pharmacy 53.1916; Ferritin 195 ng/mL (15-150); Globulin 3.2 g/dL (1.3-4.6); Glomerular Filtration Rate 83.7 mL/min (90-130); Glucose 85 mg/dL (65-115); Iron 73 ug/dL (37-145); Osmolality Calculated 282 mOsm/kg (285-295); Percent Saturation 27.5 % (20-50); Potassium 4.3 mmol/L (3.5-5.1); Sodium 135 mmol/L (136-145); Total Bilirubin 0.3 mg/dL (0.15-1.2); Total Iron Binding Capacity 265 mcg/dl; Total Protein 7.4 g/dL (6.6-8.7); Unsaturated Iron Binding 192 ug/dL (112-347)
[2024-06-10 09:17] LABS: Vitamin B12 453 pg/mL (232-1245)
[2024-06-10 09:31] LABS: Folate Level 8.1 ng/mL (4.8-37.3)
== END 2024-06-11 23:59 | disposition home or self-care (01) ==
PROVIDERS: PCP Nurse Practitioner Family; Visit Provider Internal Medicine Medical Oncology
DX: D50.9 Iron deficiency anemia, unspecified (principal); K29.50 Unspecified chronic gastritis without bleeding; D72.829 Elevated white blood cell count, unspecified; R03.0 Elevated blood-pressure reading, without diagnosis of hypertension; M81.0 Age-related osteoporosis without current pathological fracture; E55.9 Vitamin D deficiency, unspecified; Z79.899 Other long term (current) drug therapy
CPT/HCPCS: 36415; 80053; 82607; 82728; 82746; 83540; 83550; 85025; 99214

== ENCOUNTER 2024-09-09 09:49 | Oncology outpatient (recurring) (ONCR) | payer MEDICARE, SELFPAY ==
[2024-09-09 10:28] LABS: Hematocrit 41.0 % (36-47); Hemoglobin 13.80 g/dL (11.27-16.99); Mean Corpuscular HGB Conc 33.7 g/dL (30-55); Mean Corpuscular Hemoglobin 30.9 pg (27-33); Mean Corpuscular Volume 91.7 fl (85-98); Nucleated Red Blood Cells % 0 %; Platelet Count 285 10^3/cmm (157-399); Red Blood Count 4.47 10^6/uL (3.85-5.65); White Blood Count 9.44 10^3/uL (3.29-11.43)
[2024-09-09 10:48] LABS: Anion Gap 17.1 (5-19); Blood Urea Nitrogen 11 mg/dL (8-23); Calcium 9.4 mg/dL (8.5-10.5); Carbon Dioxide 23 mmol/L (22-29); Chloride 100 mmol/L (98-107); Glucose 92 mg/dL (65-115); Iron 43 ug/dL (37-145); Osmolality Calculated 281 mOsm/kg (285-295); Potassium 4.1 mmol/L (3.5-5.1); Sodium 136 mmol/L (136-145); Total Iron Binding Capacity 255 mcg/dl; Unsaturated Iron Binding 212 ug/dL (112-347)
[2024-09-09 10:49] LABS: Alanine Aminotransferase 11 U/L (0-33); Albumin Level 4.1 g/dL (3.5-5.2); Alkaline Phosphatase 111 U/L (35-105); Aspartate Amino Transferase 17 U/L (0-32); Ferritin 164 ng/mL (15-150); Globulin 3.3 g/dL (1.3-4.6); Total Protein 7.4 g/dL (6.6-8.7)
== END 2024-09-11 23:59 | disposition home or self-care (01) ==
PROVIDERS: Nurse Practitioner Family; PCP Nurse Practitioner Family; Visit Provider Internal Medicine Medical Oncology
DX: D50.9 Iron deficiency anemia, unspecified (principal); K29.50 Unspecified chronic gastritis without bleeding; D72.829 Elevated white blood cell count, unspecified; R03.0 Elevated blood-pressure reading, without diagnosis of hypertension; M81.0 Age-related osteoporosis without current pathological fracture; E55.9 Vitamin D deficiency, unspecified; K04.7 Periapical abscess without sinus; Z71.6 Tobacco abuse counseling; Z79.899 Other long term (current) drug therapy
CPT/HCPCS: 36415; 80053; 82728; 83540; 83550; 85025; 99214

== ENCOUNTER 2024-10-21 10:47 | Oncology outpatient (recurring) (ONCR) | payer MEDICARE, SELFPAY ==
[2024-10-21 11:05] LABS: Hematocrit 44.1 % (36-47); Hemoglobin 14.20 g/dL (11.27-16.99); Mean Corpuscular HGB Conc 32.2 g/dL (30-55); Mean Corpuscular Hemoglobin 28.7 pg (27-33); Mean Corpuscular Volume 89.1 fl (85-98); Nucleated Red Blood Cells % 0 %; Platelet Count 266 10^3/cmm (157-399); Red Blood Count 4.95 10^6/uL (3.85-5.65); White Blood Count 7.38 10^3/uL (3.29-11.43)
[2024-10-21 11:29] LABS: Alanine Aminotransferase 11 U/L (0-33); Albumin Level 4.1 g/dL (3.5-5.2); Alkaline Phosphatase 149 U/L (35-105); Anion Gap 10.1 (5-19); Aspartate Amino Transferase 17 U/L (0-32); Blood Urea Nitrogen 11 mg/dL (8-23); Calcium 9.3 mg/dL (8.5-10.5); Carbon Dioxide 27 mmol/L (22-29); Chloride 102 mmol/L (98-107); Ferritin 147 ng/mL (15-150); Globulin 4.0 g/dL (1.3-4.6); Glucose 102 mg/dL (65-115); Iron 34 ug/dL (37-145); Osmolality Calculated 280 mOsm/kg (285-295); Potassium 4.1 mmol/L (3.5-5.1); Sodium 135 mmol/L (136-145); Total Iron Binding Capacity 253 mcg/dl; Total Protein 8.1 g/dL (6.6-8.7); Unsaturated Iron Binding 219 ug/dL (112-347)
== END 2024-11-11 23:59 | disposition home or self-care (01) ==
LOC: ONCMED 10:49
PROVIDERS: Nurse Practitioner Family; PCP Nurse Practitioner Family; Visit Provider Internal Medicine Medical Oncology
DX: D50.9 Iron deficiency anemia, unspecified (principal)
CPT/HCPCS: 36415; 80053; 82728; 83540; 83550; 85025

== ENCOUNTER → 2024-11-06 10:39 | Outpatient (BNVA) | payer MEDICARE, SELFPAY | PROVIDERS: PCP Nurse Practitioner Family; Visit Provider Orthopaedic Surgery | DX: Z47.89 Encounter for other orthopedic aftercare (principal); M54.50 Low back pain, unspecified; Z98.1 Arthrodesis status | CPT/HCPCS: 72072; 99213 ==

== ENCOUNTER 2024-12-09 10:31 | Oncology outpatient (recurring) (ONCR) | payer MEDICARE, SELFPAY ==
[2024-12-09 11:02] LABS: Hematocrit 44.1 % (36-47); Hemoglobin 14.00 g/dL (11.27-16.99); Mean Corpuscular HGB Conc 31.7 g/dL (30-55); Mean Corpuscular Hemoglobin 27.7 pg (27-33); Mean Corpuscular Volume 87.2 fl (85-98); Nucleated Red Blood Cells % 0 %; Platelet Count 201 10^3/cmm (157-399); Red Blood Count 5.06 10^6/uL (3.85-5.65); White Blood Count 7.65 10^3/uL (3.29-11.43)
[2024-12-09 11:21] LABS: Alanine Aminotransferase 12 U/L (0-33); Albumin Level 4.0 g/dL (3.5-5.2); Alkaline Phosphatase 129 U/L (35-105); Anion Gap 15.3 (5-19); Aspartate Amino Transferase 18 U/L (0-32); Blood Urea Nitrogen 16 mg/dL (8-23); Calcium 9.2 mg/dL (8.5-10.5); Carbon Dioxide 26 mmol/L (22-29); Chloride 100 mmol/L (98-107); Creatinine Clr Calc Pharmacy 54.5784; Ferritin 55 ng/mL (15-150); Globulin 3.9 g/dL (1.3-4.6); Glucose 97 mg/dL (65-115); Iron 52 ug/dL (37-145); Osmolality Calculated 285 mOsm/kg (285-295); Potassium 4.3 mmol/L (3.5-5.1); Sodium 137 mmol/L (136-145); Total Iron Binding Capacity 269 mcg/dl; Total Protein 7.9 g/dL (6.6-8.7); Unsaturated Iron Binding 217 ug/dL (112-347)
== END 2024-12-12 23:59 | disposition home or self-care (01) ==
PROVIDERS: Nurse Practitioner Family; PCP Nurse Practitioner Family; Visit Provider Internal Medicine Medical Oncology
DX: D50.9 Iron deficiency anemia, unspecified (principal); R03.0 Elevated blood-pressure reading, without diagnosis of hypertension; D72.829 Elevated white blood cell count, unspecified; M81.0 Age-related osteoporosis without current pathological fracture; E55.9 Vitamin D deficiency, unspecified; K29.50 Unspecified chronic gastritis without bleeding
CPT/HCPCS: 36415; 80053; 82728; 83540; 83550; 85025; 99213

== ENCOUNTER 2025-02-10 11:19 | Oncology outpatient (recurring) (ONCR) | payer MEDICARE, SELFPAY ==
[2025-02-10 12:19] LABS: Hematocrit 48.7 % (36-47); Hemoglobin 15.80 g/dL (11.27-16.99); Mean Corpuscular HGB Conc 32.4 g/dL (30-55); Mean Corpuscular Hemoglobin 27.5 pg (27-33); Mean Corpuscular Volume 84.8 fl (85-98); Nucleated Red Blood Cells % 0 %; Platelet Count 226 10^3/cmm (157-399); Red Blood Count 5.74 10^6/uL (3.85-5.65); White Blood Count 6.92 10^3/uL (3.29-11.43)
[2025-02-10 13:03] LABS: Alanine Aminotransferase 13 U/L (0-33); Albumin Level 4.1 g/dL (3.5-5.2); Alkaline Phosphatase 123 U/L (35-105); Anion Gap 16.0 (5-19); Aspartate Amino Transferase 21 U/L (0-32); Blood Urea Nitrogen 12 mg/dL (8-23); Calcium 9.3 mg/dL (8.5-10.5); Carbon Dioxide 25 mmol/L (22-29); Chloride 99 mmol/L (98-107); Creatinine Clr Calc Pharmacy 55.5691; Ferritin 54 ng/mL (15-150); Globulin 3.5 g/dL (1.3-4.6); Glucose 94 mg/dL (65-115); Iron 63 ug/dL (37-145); Osmolality Calculated 282 mOsm/kg (285-295); Potassium 4.0 mmol/L (3.5-5.1); Sodium 136 mmol/L (136-145); Total Iron Binding Capacity 289 mcg/dl; Total Protein 7.6 g/dL (6.6-8.7); Unsaturated Iron Binding 226 ug/dL (112-347); Vitamin B12 866 pg/mL (232-1245)
== END 2025-02-11 23:59 | disposition home or self-care (01) ==
PROVIDERS: PCP Nurse Practitioner Family; Visit Provider Internal Medicine Medical Oncology
DX: D50.9 Iron deficiency anemia, unspecified (principal); K29.50 Unspecified chronic gastritis without bleeding; F17.210 Nicotine dependence, cigarettes, uncomplicated; R03.0 Elevated blood-pressure reading, without diagnosis of hypertension; D72.829 Elevated white blood cell count, unspecified; M81.0 Age-related osteoporosis without current pathological fracture; E55.9 Vitamin D deficiency, unspecified; Z71.6 Tobacco abuse counseling
CPT/HCPCS: 80053; 82607; 82728; 82746; 83540; 83550; 85025; 99213